=== PATIENT | male | born 1935 | race Caucasian/White ===

== ENCOUNTER 2017-04-18 08:43 | Inpatient (IN) | payer BC, MEDICARE ==
[2017-04-18] MEDS ORDERED: ACETAMINOPHEN TAB 500 MG TAB PO STA (08:50)
[2017-04-18] MEDS ORDERED: IBUPROFEN 600 MG TAB PO STA (08:50)
[2017-04-18] MEDS ORDERED: SODIUM CHLORIDE 0.9% 1,000 ML IV STA ×3 (08:50→09:59)
[2017-04-18] MEDS ORDERED: SODIUM CHLORIDE 0.9% 500 ML IV STA (08:50)
[2017-04-18] MEDS ORDERED: AMPICILLIN-SULBACTAM 3 GM in SODIUM CHLORIDE 0.9% 100 ML IVPB STA (09:09)
[2017-04-18] MEDS ORDERED: DILTIAZEM 5 MG/ML 5 ML VIAL IVP STA (09:09)
[2017-04-18] MEDS ORDERED: VANCOMYCIN IV PER PHARMACY 1 EACH MISC MISCELLANE PRN (09:09)
[2017-04-18] MEDS ORDERED: MORPHINE SULFATE 2 MG/ML SYRINGE IVP ONE (09:09)
[2017-04-18] MEDS ORDERED: VANCOMYCIN 1,500 MG in SODIUM CHLORIDE 0.9% 250 ML IVPB STA (09:16)
[2017-04-18 09:25] LABS: Basophils % (A) 0 %; Eosinophils # (A) 0.1 k/uL (0-0.7); Eosinophils % (A) 1 %; HCT 33.5 % (39.0-53.0); HGB 10.7 gm/dL (13.0-17.5); Lymphocytes # (A) 0.3 k/uL (1.0-4.8); Lymphocytes % (A) 4 %; MCH 30.1 pg (25.0-35.0); MCHC 32.1 g/dL (31.0-37.0); MCV 93.8 fL (80.0-100.0); Mean Platelet Volume 7.4; Monocytes # (A) 0.1 k/uL (0-1.0); Monocytes % (A) 1 %; Neutrophils # (A) 6.8 k/uL (1.3-7.7); Neutrophils % (A) 93 %; Platelet Count 198 k/uL (150-450); RBC 3.57 m/uL (4.30-5.90); RDW 15.1 % (11.5-15.5); WBC 7.3 k/uL (3.8-10.6)
--- NOTE | 2017-04-18 09:31 | ED ---
General Adult HPI - General Chief complaint: Fever Stated complaint: Elevated temp Time Seen by Provider: 04/18/17 08:49 Source: patient, RN notes reviewed, old records reviewed Mode of arrival: EMS Limitations: no limitations - History of Present Illness Initial comments: An 79-year-old male to the ER for evaluation. This patient presents today for evaluation regards to fever. Fever not feeling well. Patient has history of heart disease history of A. fib, patient's most concerning history is recent laminectomy. Patient's laminectomy was within the last week, patient developed fever starting last night shortness of breath weakness. Dehydration. This not feeling well. His back hurts but no more than normal. Patient has no modifying factors for pain, patient did have drainage from surgical site although is clear - Related Data Home Medications Medication Instructions Recorded Confirmed Aspirin 81 mg PO DAILY 08/25/13 12/06/13 Atenolol [Tenormin] 12.5 mg PO BID 08/25/13 12/06/13 Atorvastatin [Lipitor] 40 mg PO HS 08/25/13 12/06/13 B Complex Ultra 1 tab PO DAILY 08/25/13 12/06/13 Calcium,Magnesium 1 tab PO HS 08/25/13 12/06/13 Cholecalciferol [Vitamin D3] 1,000 unit PO DAILY 08/25/13 12/06/13 Fish Oil/Dha/Epa [Fish Oil 1,200 1 each PO HS 08/25/13 12/06/13 mg Fish Oil] Folic Acid 0.4 mg PO BID 08/25/13 12/06/13 Furosemide [Lasix] 20 mg PO DAILY 08/25/13 12/06/13 Lansoprazole 30 mg PO DAILY 08/25/13 12/06/13 Losartan Potassium [Cozaar] 100 mg PO HS 08/25/13 12/06/13 Multivitamins, Thera [Multivitamin 1 tab PO DAILY 08/25/13 12/06/13 (formulary)] Spironolactone [Aldactone] 25 mg PO DAILY 08/25/13 12/06/13 Warfarin [Coumadin] 5 mg PO SUMOTUWETHFR 08/25/13 12/06/13 Warfarin [Coumadin] 7.5 mg PO SA 12/01/13 12/06/13 Allergies Allergy/AdvReac Type Severity Reaction Status Date / Time budesonide [From Symbicort] AdvReac Unknown Verified 04/18/17 12:00 formoterol fumarate AdvReac Unknown Verified 04/18/17 12:00 [From Symbicort] Review of Systems ROS Statement: Those systems with pertinent positive or pertinent negative responses have been documented in the HPI. ROS Other: All systems not noted in ROS Statement are negative. Past Medical History Past Medical History: Coronary Artery Disease (CAD), COPD, GERD/Reflux, GI Bleed , Hyperlipidemia, Hypertension, Myocardial Infarction ([place]), Osteoarthritis (OA) , Prostate Disorder, Skin Disorder, Sleep Apnea/CPAP/BIPAP Additional Past Medical History / Comment(s): SOB W/ INCR ACTIVITY. HX SKIN PRE -CA LESIONS. USES CPAP. HAS HIATAL HERNIA. GI BLEED X3. HX KIDNEY STONE. Last Myocardial Infarction Date:: UNKNOWN History of Any Multi-Drug Resistant Organisms: None Reported Past Surgical History: Back Surgery, Cardiac Ablation, Coronary Bypass/CABG, Heart Catheterization With Stent, Hernia Repair Additional Past Surgical History / Comment(s): BELLA CATARACTS; CTR BELLA; TRIPLE CABG; LT ING HERNIA REPAIR; CARDIOVERSION 12/2012; CARDIAC ABLATION X2, ATTEMPT X1 - LAST DONE 06/27/13 AT [facility] [place] FOR SPINAL STENOSIS Past Anesthesia/Blood Transfusion Reactions: No Reported Reaction Date of Last Stent Placement:: 2003 Past Psychological History: No Psychological Hx Reported Smoking Status: Never smoker - Past Family History Mother Family Medical History: Cancer General Exam - General Exam Comments Initial Comments: Site is clean and dry and intact, no drainage appreciated, no erythema Limitations: no limitations General appearance: alert, in no apparent distress Head exam: Present: atraumatic, normocephalic, normal inspection Eye exam: Present: normal appearance, PERRL, EOMI. Absent: scleral icterus, conjunctival injection, periorbital swelling ENT exam: Present: normal exam, mucous membranes moist Neck exam: Present: normal inspection. Absent: tenderness, meningismus, lymphadenopathy Respiratory exam: Present: normal lung sounds bilaterally. Absent: respiratory distress, wheezes, rales, rhonchi, stridor Cardiovascular Exam: Present: tachycardia, normal heart sounds. Absent: systolic murmur, diastolic murmur, rubs, gallop, clicks GI/Abdominal exam: Present: soft, normal bowel sounds. Absent: distended, tenderness, guarding, rebound, rigid Extremities exam: Present: normal inspection, full ROM, normal capillary refill. Absent: tenderness, pedal edema, joint swelling, calf tenderness Back exam: Present: normal inspection Neurological exam: Present: alert, oriented X3, CN II-XII intact Psychiatric exam: Present: normal affect, normal mood Skin exam: Present: warm, dry, intact, normal color. Absent: rash Course Vital Signs 04/18/17 04/18/17 04/18/17 08:52 09:24 09:56 Temperature 100.2 F H 102.2 F H Pulse Rate 118 H 118 H 119 H Respiratory 20 20 18 Rate Blood Pressure 122/56 95/52 80/51 O2 Sat by Pulse 93 L 99 95 Oximetry 04/18/17 04/18/17 04/18/17 10:29 11:18 11:39 Temperature 101.7 F H Pulse Rate 129 H 128 H 94 Respiratory 16 20 18 Rate Blood Pressure 80/51 74/50 109/62 O2 Sat by Pulse 97 99 98 Oximetry - Reevaluation(s) Reevaluation #1: 04/18/17 12:05 Patient is having significant drop in blood pressure, patient was change rooms, no able and able to control patient's atrial fibrillation with RVR, I was cardiogenic circulatory and vasodilatory shock, patient had central line placed , was placed on BiPAP began to respond appropriately EKG Findings - EKG Comments: EKG Findings:: EKG shows sinus tachycardia rate 116, NC 160, QRS 172, QTC 603. Repeat. EKG shows A. fib with RVR rate 125, QRS 148, QTC 535 Procedures - Central Line Placement Right IJ Consent Obtained: verbal consent Time Out Performed: Yes Patient Placed on Monitor/Pulse Ox: Yes Prep: mask, gown, gloves Central Line Prep: Chlorhexidine scrub Local Anesthesia Used: Lidocaine 1% Ultrasound Used for Placement: Yes Central Line Lumen Inserted: triple Bloods Obtained for Lab: Yes Central Line Position: good blood return, all ports aspirated, flushed, capped Dressing Applied: Tegaderm Post Procedure X-Ray: tip of catheter in good position Patient Tolerated Procedure: well Complications: none Medical Decision Making - Medical Decision Making 81 male the ER for evaluation of fever. Fever, back pain, shakes and chills, patient has severe sepsis, patient to be admitted for continued cardiopulmonary observation and hemodynamic resuscitation and observation. - Lab Data Result diagrams: 04/18/17 09:05 04/18/17 09:05 Lab Results 04/18/17 04/18/17 04/18/17 Range/Units 09:05 09:05 09:05 WBC 7.3 (3.8-10.6) k/uL RBC 3.57 L (4.30-5.90) m/uL Hgb 10.7 L (13.0-17.5) gm/dL Hct 33.5 L (39.0-53.0) % MCV 93.8 (80.0-100.0) fL MCH 30.1 (25.0-35.0) pg MCHC 32.1 (31.0-37.0) g/dL RDW 15.1 (11.5-15.5) % Plt Count 198 (150-450) k/uL Neutrophils % 93 % Lymphocytes % 4 % Monocytes % 1 % Eosinophils % 1 % Basophils % 0 % Neutrophils # 6.8 (1.3-7.7) k/uL Lymphocytes # 0.3 L (1.0-4.8) k/uL Monocytes # 0.1 (0-1.0) k/uL Eosinophils # 0.1 (0-0.7) k/uL Basophils # 0.0 (0-0.2) k/uL PT (9.0-12.0) sec INR (<1.2) APTT (22.0-30.0) sec Sodium (137-145) mmol/L Potassium (3.5-5.1) mmol/L Chloride (98-107) mmol/L Carbon Dioxide (22-30) mmol/L Anion Gap mmol/L BUN (9-20) mg/dL Creatinine (0.66-1.25) mg/dL Est GFR (MDRD) Af Amer (>60 ml/min/1.73 sqM) Est GFR (MDRD) Non-Af (>60 ml/min/1.73 sqM) Glucose (74-99) mg/dL Plasma Lactic Acid Angel (0.7-2.0) mmol/L Calcium (8.4-10.2) mg/dL Phosphorus (2.5-4.5) mg/dL Magnesium (1.6-2.3) mg/dL Total Bilirubin (0.2-1.3) mg/dL AST (17-59) U/L ALT (21-72) U/L Alkaline Phosphatase (38-126) U/L Total Creatine Kinase 43 L (55-170) U/L CK-MB (CK-2) 1.7 (0.0-2.4) ng/mL CK-MB (CK-2) Rel Index 4.0 Troponin I 0.098 H* (0.000-0.034) ng/mL Total Protein (6.3-8.2) g/dL Albumin (3.5-5.0) g/dL Urine Color Urine Appearance (Clear) Urine pH (5.0-8.0) Ur Specific [place] (1.001-1.035) Urine Protein (Negative) Urine Glucose (UA) (Negative) Urine Ketones (Negative) Urine Blood (Negative) Urine Nitrite (Negative) Urine Bilirubin (Negative) Urine Urobilinogen (<2.0) mg/dL Ur Leukocyte Esterase (Negative) Influenza Type A RNA Not Detected (Not Detectd) Influenza Type B (PCR) Not Detected (Not Detectd) 04/18/17 04/18/17 04/18/17 Range/Units 09:05 09:05 09:05 WBC (3.8-10.6) k/uL RBC (4.30-5.90) m/uL Hgb (13.0-17.5) gm/dL Hct (39.0-53.0) % MCV (80.0-100.0) fL MCH (25.0-35.0) pg MCHC (31.0-37.0) g/dL RDW (11.5-15.5) % Plt Count (150-450) k/uL Neutrophils % % Lymphocytes % % Monocytes % % Eosinophils % % Basophils % % Neutrophils # (1.3-7.7) k/uL Lymphocytes # (1.0-4.8) k/uL Monocytes # (0-1.0) k/uL Eosinophils # (0-0.7) k/uL Basophils # (0-0.2) k/uL PT 15.8 H (9.0-12.0) sec INR 1.7 H (<1.2) APTT 23.9 (22.0-30.0) sec Sodium 137 (137-145) mmol/L Potassium 5.0 (3.5-5.1) mmol/L Chloride 101 (98-107) mmol/L Carbon Dioxide 22 (22-30) mmol/L Anion Gap 14 mmol/L BUN 45 H (9-20) mg/dL Creatinine 1.57 H (0.66-1.25) mg/dL Est GFR (MDRD) Af Amer 52 (>60 ml/min/1.73 sqM) Est GFR (MDRD) Non-Af 43 (>60 ml/min/1.73 sqM) Glucose 120 H (74-99) mg/dL Plasma Lactic Acid Angel 3.2 H* (0.7-2.0) mmol/L Calcium 9.5 (8.4-10.2) mg/dL Phosphorus 3.1 (2.5-4.5) mg/dL Magnesium 2.0 (1.6-2.3) mg/dL Total Bilirubin 1.2 (0.2-1.3) mg/dL AST 31 (17-59) U/L ALT 32 (21-72) U/L Alkaline Phosphatase 90 (38-126) U/L Total Creatine Kinase (55-170) U/L CK-MB (CK-2) (0.0-2.4) ng/mL CK-MB (CK-2) Rel Index Troponin I (0.000-0.034) ng/mL Total Protein 6.2 L (6.3-8.2) g/dL Albumin 3.6 (3.5-5.0) g/dL Urine Color Urine Appearance (Clear) Urine pH (5.0-8.0) Ur Specific [place] (1.001-1.035) Urine Protein (Negative) Urine Glucose (UA) (Negative) Urine Ketones (Negative) Urine Blood (Negative) Urine Nitrite (Negative) Urine Bilirubin (Negative) Urine Urobilinogen (<2.0) mg/dL Ur Leukocyte Esterase (Negative) Influenza Type A RNA (Not Detectd) Influenza Type B (PCR) (Not Detectd) 04/18/17 Range/Units 10:23 WBC (3.8-10.6) k/uL RBC (4.30-5.90) m/uL Hgb (13.0-17.5) gm/dL Hct (39.0-53.0) % MCV (80.0-100.0) fL MCH (25.0-35.0) pg MCHC (31.0-37.0) g/dL RDW (11.5-15.5) % Plt Count (150-450) k/uL Neutrophils % % Lymphocytes % % Monocytes % % Eosinophils % % Basophils % % Neutrophils # (1.3-7.7) k/uL Lymphocytes # (1.0-4.8) k/uL Monocytes # (0-1.0) k/uL Eosinophils # (0-0.7) k/uL Basophils # (0-0.2) k/uL PT (9.0-12.0) sec INR (<1.2) APTT (22.0-30.0) sec Sodium (137-145) mmol/L Potassium (3.5-5.1) mmol/L Chloride (98-107) mmol/L Carbon Dioxide (22-30) mmol/L Anion Gap mmol/L BUN (9-20) mg/dL Creatinine (0.66-1.25) mg/dL Est GFR (MDRD) Af Amer (>60 ml/min/1.73 sqM) Est GFR (MDRD) Non-Af (>60 ml/min/1.73 sqM) Glucose (74-99) mg/dL Plasma Lactic Acid Angel (0.7-2.0) mmol/L Calcium (8.4-10.2) mg/dL Phosphorus (2.5-4.5) mg/dL Magnesium (1.6-2.3) mg/dL Total Bilirubin (0.2-1.3) mg/dL AST (17-59) U/L ALT (21-72) U/L Alkaline Phosphatase (38-126) U/L Total Creatine Kinase (55-170) U/L CK-MB (CK-2) (0.0-2.4) ng/mL CK-MB (CK-2) Rel Index Troponin I (0.000-0.034) ng/mL Total Protein (6.3-8.2) g/dL Albumin (3.5-5.0) g/dL Urine Color Yellow Urine Appearance Clear (Clear) Urine pH 5.0 (5.0-8.0) Ur Specific [place] 1.014 (1.001-1.035) Urine Protein Trace H (Negative) Urine Glucose (UA) Negative (Negative) Urine Ketones Negative (Negative) Urine Blood Negative (Negative) Urine Nitrite Negative (Negative) Urine Bilirubin Negative (Negative) Urine Urobilinogen <2.0 (<2.0) mg/dL Ur Leukocyte Esterase Negative (Negative) Influenza Type A RNA (Not Detectd) Influenza Type B (PCR) (Not Detectd) - Radiology Data Radiology results: report reviewed (Chest x-rays negative for pneumonia), image reviewed Critical Care Time Critical Care Time: Yes Total Critical Care Time: 31 Disposition Clinical Impression: Fever, Sepsis, Septic shock, Bacteremia Disposition: ADMITTED IP TO THIS HOSP Condition: Fair Referrals: Chuck Montanez MD [Primary Care Provider] - 1-2 days
[2017-04-18 09:37] LABS: INR 1.7 (<1.2); Partial Thromboplastin Time 23.9 sec (22.0-30.0); Prothrombin Time 15.8 sec (9.0-12.0)
[2017-04-18 09:46] LABS: Albumin 3.6 g/dL (3.5-5.0); Calcium 9.5 mg/dL (8.4-10.2); Phosphorus 3.1 mg/dL (2.5-4.5); Total Bilirubin 1.2 mg/dL (0.2-1.3); Total Protein 6.2 g/dL (6.3-8.2)
[2017-04-18 10:01] LABS: Creatine Kinase MB 1.7 ng/mL (0.0-2.4)
[2017-04-18 10:05] LABS: Troponin I 0.098 ng/mL (0.000-0.034)
--- NOTE | 2017-04-18 10:24 | XR ---
EXAMINATION TYPE: XR chest 2V DATE OF EXAM: 04/18/2017 HISTORY: Weakness. REFERENCE: Previous study dated 01/24/2013. FINDINGS: There has been a midline sternotomy. The lungs are overinflated. The heart is enlarged. There is some blunting of the left CP angle. The l ungs appear clear. IMPRESSION: 1. COPD. 2. CARDIOMEGALY. 3. I CANNOT EXCLUDE A LEFT-SIDED EFFUSION.
[2017-04-18 10:41] LABS: Appearance,Urine Clear (Clear); Bilirubin,Urine Negative (Negative); Blood,Urine Negative (Negative); Color,Urine Yellow; Glucose,Urine (UA) Negative (Negative); Ketones,Urine Negative (Negative); Leukocyte Esterase,Urine Negative (Negative); Nitrite,Urine Negative (Negative); Protein,Urine Trace (Negative); Specific Gravity,Urine 1.014 (1.001-1.035); Urobilinogen,Urine <2.0 mg/dL (<2.0)
[2017-04-18] MEDS ORDERED: NOREPINEPHRIN 4 MG-0.9% NS PMX 4 MG/250 ML ML IV ONE (10:59)
[2017-04-18] MEDS ORDERED: NALOXONE 0.4 MG/ML 10 ML VIAL IVP STA (11:42)
--- NOTE | 2017-04-18 12:56 | XR ---
EXAMINATION TYPE: XR chest 1V portable DATE OF EXAM: 04/18/2017 HISTORY: cp. REFERENCE: Previous study from earlier today. FINDINGS: There has been a midline sternotomy. A right internal jugular catheter is been inserted. Its tip is at the cavoatrial junction. The heart is enlarged. The lungs appear clear. There is mild blunting of the left CP angle. IMPRESSION: 1. I DO NOT SEE A CATHETER INSERTION COMPLICATION. 2. CARDIOMEGALY. 3. I COULD NOT EXCLUDE A SMALL, LEFT EFFUSION.
[2017-04-18] MEDS ORDERED: SODIUM CHLORIDE 0.9% 500 ML IV ONE (13:37)
[2017-04-18 14:28] LABS: Glucose,Whole Blood 88 mg/dL (75-99)
[2017-04-18] MEDS: SODIUM CHLORIDE 0.9% 1,000 ML IV SCH ×2 (14:42→20:00)
[2017-04-18] MEDS: NOREPINEPHRIN 4 MG-0.9% NS PMX 4 MG/250 ML ML IV SCH ×2 (14:46→18:20)
[2017-04-18 15:02] VITALS: BMI 27.4
[2017-04-18] MEDS ORDERED: NALOXONE 0.4 MG/ML 1 ML VIAL IV PRN (15:33)
--- NOTE | 2017-04-18 15:36 | P.CNPUL ---
History of Present Illness Consult date: 04/18/17 Chief complaint: Chills and rigors, hypotension History of present illness: Consult dated 04/18/2017 81-year-old male who comes in today because of chills and right dorsalis at home. About 7 or 8 days ago, he had a laminectomy done in [place] by Dr. Tony De Jesus. The laminectomy was done at levels L3 4 and 5. Anyway apparently this morning he developed acute right nurse and chills. He couldn't get warm. Likely had fever. The patient does have purulent drainage from the incision site. The patient Don is currently on fluids and norepinephrine for blood pressure support. The patient has an extensive past medical history including coronary artery disease COPD gastroesophageal reflux disease GI bleed hyperlipidemia hypertension myocardial infarction DJD sleep apnea syndrome skin cancer cardiac ablation recent back surgery cardiac catheterization hernia repair bypass grafting and atrial fibrillation. Currently the patient is on norepinephrine for blood pressure support. Did receive 3 L of fluid. Is on good antibiotics in the form of vancomycin and Zosyn. A CAT scan will be ordered to evaluate the lumbar spine. The drainage is purulent. Infectious disease consult has been requested. Review of Systems A 12 point review of systems is positive for chills and write orders. Those have settled down quite a bit. Has pain in the bck where the surgery was done. No fever at the current time. Past Medical History Past Medical History: Coronary Artery Disease (CAD), COPD, GERD/Reflux, GI Bleed , Hyperlipidemia, Hypertension, Myocardial Infarction ([place]), Osteoarthritis (OA) , Prostate Disorder, Skin Disorder, Sleep Apnea/CPAP/BIPAP Additional Past Medical History / Comment(s): SOB W/ INCR ACTIVITY. HX SKIN PRE -CA LESIONS. USES CPAP. HAS HIATAL HERNIA. GI BLEED X3. HX KIDNEY STONE. Last Myocardial Infarction Date:: UNKNOWN History of Any Multi-Drug Resistant Organisms: None Reported Past Surgical History: Back Surgery, Cardiac Ablation, Coronary Bypass/CABG, Heart Catheterization With Stent, Hernia Repair Additional Past Surgical History / Comment(s): BELLA CATARACTS; CTR BELLA; TRIPLE CABG; LT ING HERNIA REPAIR; CARDIOVERSION 12/2012; CARDIAC ABLATION X2, ATTEMPT X1 - LAST DONE 06/27/13 AT [facility] [place] FOR SPINAL STENOSIS Past Anesthesia/Blood Transfusion Reactions: No Reported Reaction Date of Last Stent Placement:: 2003 Smoking Status: Never smoker - Past Family History Mother Family Medical History: Cancer Medications and Allergies Home Medications Medication Instructions Recorded Confirmed Type Aspirin 81 mg PO HS 08/25/13 04/18/17 History Atorvastatin [Lipitor] 40 mg PO HS 08/25/13 04/18/17 History B Complex Ultra 1 tab PO DAILY 08/25/13 04/18/17 History Calcium,Magnesium 1 tab PO HS 08/25/13 04/18/17 History Cholecalciferol [Vitamin D3] 1,000 unit PO DAILY 08/25/13 04/18/17 History Fish Oil/Dha/Epa [Fish Oil 1,200 1 cap PO HS 08/25/13 04/18/17 History mg Fish Oil] Folic Acid 0.4 mg PO BID 08/25/13 04/18/17 History Furosemide [Lasix] 40 mg PO DAILY 08/25/13 04/18/17 History Lansoprazole 30 mg PO DAILY 08/25/13 04/18/17 History Multivitamins, Thera [Multivitamin 1 tab PO DAILY 08/25/13 04/18/17 History (formulary)] Spironolactone [Aldactone] 25 mg PO DAILY 08/25/13 04/18/17 History Warfarin [Coumadin] 5 mg PO HS 08/25/13 04/18/17 History Glucosam/Del-Msm1/C/Drew/Bosw 1 tab PO DAILY 04/18/17 04/18/17 History [Glucosamine-Chondroitin Tablet] Losartan Potassium 50 mg PO DAILY@1200 04/18/17 04/18/17 History Metoprolol Succinate (ER) [Toprol 50 mg PO DAILY 04/18/17 04/18/17 History Xl] Allergies Allergy/AdvReac Type Severity Reaction Status Date / Time budesonide [From Symbicort] AdvReac Unknown Verified 04/18/17 12:00 formoterol fumarate AdvReac Unknown Verified 04/18/17 12:00 [From Symbicort] Physical Exam Osteopathic Statement: *. No significant issues noted on an osteopathic structural exam other than those noted in the History and Physical/Consult. Vitals: Vital Signs Temp Pulse Resp BP Pulse Ox 04/18/17 13:49 98 04/18/17 12:24 98.9 F 104 H 16 100/53 98 04/18/17 11:39 94 18 109/62 98 04/18/17 11:18 128 H 20 74/50 99 04/18/17 10:29 101.7 F H 129 H 16 80/51 97 04/18/17 09:56 102.2 F H 119 H 18 80/51 95 04/18/17 09:24 118 H 20 95/52 99 04/18/17 08:52 100.2 F H 118 H 20 122/56 93 L Intake and Output 04/18/17 04/18/17 04/18/17 06:59 14:59 22:59 Other: Weight 91.9 kg Patient Weight 04/19/17 06:59 Weight 91.9 kg No acute distress, oriented 3. HEENT examination is grossly unremarkable. Mucous membranes are moist. No oral lesions. Neck supple. Full range of motion. No adenopathy thyromegaly or neck vein distention. Cardiovascular examination reveals regular rhythm rate. S1-S2 normal. No S3 or S4. No discernible murmur noted. Lungs reveal clear breath sounds. Her sounds are equal bilaterally. No adventitious lung sounds including wheezes rhonchi or crackles. Abdomen soft bowel sounds are heard. No masses or tenderness. Extremities are intact. No cyanosis clubbing or edema. Skin is without rash. There is quite a bit bruising on the back with lumbar laminectomy was performed. The drainage from the site is very purulent appearing. Neurologic examination is brief but nonfocal. Results - Laboratory Findings CBC and BMP: 04/18/17 09:05 04/18/17 09:05 PT/INR, D-dimer PT 15.8 sec (9.0-12.0) H 04/18/17 09:05 INR 1.7 (<1.2) H 04/18/17 09:05 Abnormal lab findings: Abnormal Labs 04/18/17 04/18/17 04/18/17 09:05 09:05 09:05 RBC 3.57 L Hgb 10.7 L Hct 33.5 L Lymphocytes # 0.3 L PT INR BUN 45 H Creatinine 1.57 H Glucose 120 H Plasma Lactic Acid Angel Total Creatine Kinase 43 L Troponin I 0.098 H* Total Protein 6.2 L Urine Protein 04/18/17 04/18/17 04/18/17 09:05 09:05 10:23 RBC Hgb Hct Lymphocytes # PT 15.8 H INR 1.7 H BUN Creatinine Glucose Plasma Lactic Acid Angel 3.2 H* Total Creatine Kinase Troponin I Total Protein Urine Protein Trace H - Diagnostic Findings Chest x-ray: image reviewed (Labs x-rays a medications are all reviewed.) Assessment and Plan Assessment: Assessment Sepsis with septic shock Recent lumbar laminectomy History of CAD Myocardial infarction Hypertension Hyperlipidemia History of sleep apnea syndrome, currently on CPAP History of kidney stones Status post bypass grafting Status post multiple cardiac ablations Previous cardiac catheterization with stent placement Plan: Plan dated 04/18/2017 The patient will continue on antibiotics. We'll request an infectious disease consult. There has been a Gram stain and culture sent from the drainage from the back. The patient Don is on good antibiotics currently. We'll await ID input there. The patient's currently receiving an adequate fluid resuscitation and norepinephrine for blood pressure support. A CAT scan will be ordered to evaluate the area. The patient may benefit from being transferred back to [place] depending on what is found in the back. Additional recommendations and suggestions are forthcoming. Time with Patient: Greater than 30
[2017-04-18] MEDS: PIPERACILLIN-TAZOBACTAM 3.375 GM in DEXTROSE/WATER 1 50ML.BAG IVPB SCH ×2 (16:06→23:15)
--- NOTE | 2017-04-18 17:47 | CT ---
EXAMINATION TYPE: CT lumbar spine wo con DATE OF EXAM: 04/18/2017 COMPARISON: NONE HISTORY: 81-year-old male with pain, purulent drainage from lumbar wound, Post OP lumbar surgery with infection TECHNIQUE: Contiguous axial scanning of the lumbar spine without IV contrast. Coronal and sagittal re constructions performed. CT DLP: 1029.2 mGycm Automated exposure control for dose reduction was used. FINDINGS: There are small effusions and a small hiatal hernia. Degenerative changes at both SI joints. Mild dif fuse anasarca type changes. 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 There is postsurgical inflammation and soft tissue distortion along the mid lumbar spine is seen to r epresent a left L4 and probably a right-sided laminectomy at this level as well. Low density is present within the left sided laminectomy defect measuring 2.3 x 1.8 cm. Some foci of air present here extending to the left lateral epidural space opposite L4 and also in the ventral foc i of air space opposite L3. There may be another small fluid collection in the posterior subcutaneous fat left paramedian L3-L4 l evel measuring 1.7 x 1.4 cm. Lack of IV contrast limits assessment. Severe facet arthropathy. Degenerative retrolistheses are grade 1 at L1-L2, L2-L3, and L4-L5. No fransico canal compromise is evident though bulging discs are present throughout. On the left, changes result in moderate neural foraminal stenosis at L5-S1 and moderate at L2 through L5 levels. On the right, changes result in moderate neural foraminal stenosis from L2 through L5 levels and mild at L5-S1. Vertebral body heights are preserved. No endplate erosive changes are seen. IMPRESSION: 1. LEFT L4 LAMINECTOMY CHANGE. THERE IS 2.3 X 1.8 CM LOW-DENSITY IN THE LAMINECTOMY BED. GIVEN THE PA TIENT'S PURULENT DRAINAGE, POSTSURGICAL ABSCESS AT THE LAMINECTOMY BED IS NOT EXCLUDED. OTHER POSTOPE RATIVE COLLECTION SUCH A SEROMA IS ALSO POSSIBLE. 2. SMALL FOCI OF AIR IN THE EPIDURAL SPACE JUST UNDERLYING AND EXTENDING ALONG THE LEFT LATERAL EPIDU RAL SPACE OPPOSITE L4 AND VENTRAL EPIDURAL SPACE OPPOSITE L3-L4. IF THERE IS INFECTION AT THE LAMINEC AGUILA BED, EARLY EPIDURAL INVOLVEMENT WOULD BE DIFFICULT TO EXCLUDE. CORRELATE TO TIME SINCE SURGER Y TO DETERMINE IF THIS EPIDURAL SPACE AIR MAY BE POSTSURGICAL. 3. SMALL EFFUSIONS AND DIFFUSE ANASARCA-TYPE CHANGE.
--- NOTE | 2017-04-18 19:13 | HP ---
HISTORY AND PHYSICAL CHIEF COMPLAINT: Fever. HISTORY OF PRESENT ILLNESS: This is an 81-year-old gentleman was admitted to the hospital after being brought to the emergency room because of severe chills. The patient got up to the bathroom when he suddenly started having severe chills and feeling hot. The patient had recently about 10 days ago a surgery of his lumbosacral spine for laminectomy. The patient has been having drainage for the past couple of days. Initially, the drainage was brownish in color. Subsequent to that is significant clear serosanguineous drainage. In view of this, the patient was seen in the emergency room. The patient is noted to have suggestion of sepsis with some elevated lactic acid, episodes of hypotension improved with IV fluids, tachycardia, fever. The patient in view of this, is admitted to the hospital. I did see the patient in the emergency room and I called the surgeon who operated on him. The patient had surgery at [place]. The surgeon recommended that the patient just being about a week to 10 days out, did not seem to need any surgical intervention, and at present would be best off treated up here. The patient will be admitted to the hospital here. If it does arise the patient will require any surgical intervention of the lumbosacral spine, he will have to be transferred out. Meanwhile we will stabilize the patient. The patient has been given IV fluids. He has been started on vancomycin. In the ER, he had been given Augmentin. The patient will be has been switched to Zosyn. We will ask ID to see the patient and mechanical specialist to see the patient. The patient's condition is discussed with the patient's family. The patient has no evidence of any influenza or any other respiratory infection or urinary infection. He is pretty alert and able to communicate well. He does not feel his pain the lumbar area worsened any in the last couple days. PAST MEDICAL HISTORY: Significant for infiltrative cardiomyopathy with amyloidosis. Also history of chronic atrial fibrillation. Coronary artery disease. Previous history of atrial fib flutter, peptic ulcer disease with bleeding, gastroesophageal reflux and esophageal stricture requiring dilatation couple of times, spinal stenosis with previous lumbar surgery and recent repeat lumbar surgery. History of BPH. PAST SURGICAL HISTORY: Significant for right inguinal herniorrhaphy, CABG 26 years ago, cataracts, EGD with esophageal dilatation and lumbar surgery twice. PERSONAL HISTORY: Never smoker. Alcohol, wine about 1 glass per day twice a week. FAMILY MEDICAL HISTORY: Father at the age of 62 of acute myocardial infarction. Mother at the age of 57 from CA of breast. The patient had a brother with history of coronary artery disease. Two sisters both with history of coronary artery disease, arthrosclerotic heart disease. The patient has a daughter in adequate health, two sons both with atrial fibrillation. MEDICATIONS: Include Lasix 20 mg daily. Aldactone 25 mg daily. Losartan 100 mg daily, iron tablet daily. Vitamin D daily. Folic acid daily, Coumadin 5 mg daily, Prevacid 30 mg daily. Atenolol 25 mg half tablet b.i.d., atorvastatin 40 mg daily. Aspirin 81 mg daily. SOCIAL HISTORY: Patient . The patient still works. He works with an [employer]. REVIEW OF SYSTEMS: NEURO: Denies any headaches, dizziness. No double vision, blurred vision. No symptoms of TIA, syncope, seizures. PSYCH: Some apprehension. CARDIAC: Denies chest pain, angina, palpitations. RESPIRATORY: Denies shortness of breath, cough, hemoptysis. GI: No nausea, vomiting, abdominal pain, diarrhea. : No symptoms of dysuria, hematuria, urgency, frequency. Does have some nocturia. EXTREMITIES: Denies pain, edema, paresthesias. CONSTITUTIONAL: Present complaint of fever, chills. SKIN: No rash. MUSCULOSKELETAL: Status post present lower back surgery. PHYSICAL EXAMINATION: Pleasant gentleman, awake, alert, oriented, well-coordinated movements. Blood pressure at the time of my evaluation in the emergency room was 96/60 blood pressure, pulse rate of 110 and regular, afebrile after receiving some Tylenol earlier. Respirations 18. Pulse ox of 97%. HEENT: Normocephalic. Neck supple. Pupils reactive. Nostrils clear. Oral cavity is moist. Ears reveal no drainage. Neck reveals no JVD, carotid bruits or thyromegaly. CHEST: Examination is clear to auscultation and percussion. CARDIAC: Normal S1, S2 with no gallops, murmurs, or rubs. Systolic murmur 2/6 at apex. ABDOMEN: Soft. Bowel sounds present. No tenderness. No organomegaly. Bowel sounds active. EXTREMITIES: Reveal no edema. Good pulses both upper and lower extremities. NEUROLOGICAL: Awake, alert, oriented x3 with well-coordinated movements both upper and lower extremities. Patient is examined lying in bed, not out of bed. The patient's sensations in both feet are intact. Deep tendon reflexes both lower extremities are reduced. Spine reveals the patient has a small incision about the L4-5 area with some drainage which is serosanguineous. LABORATORY ASSESSMENT: Elevated lactic acid as mentioned. X-ray reveals no acute infiltrates. ASSESSMENT: 1. Sepsis, source suspect the recent site of lumbosacral surgery. 2. History of cardiomyopathy with amyloidosis. 3. Paroxysmal atrial fibrillation. 4. Coronary artery disease, stable. PLAN: The patient admitted to the hospital, started on IV antibiotics, IV fluids. The patient is being admitted to the ICU. Instructional Assistant to see the patient, ID to see the patient. The patient is to get a CT scan of the lumbosacral spine. I have discussed with the patient and family that if there is any indication that he is going to need any surgical intervention in the lumbar cervical spine, he may have to be transferred out of this institution. Prognosis remains guarded. MMODL / IJN: [id number] /
[2017-04-18] MEDS ORDERED: ASPIRIN 81 MG PO SCH (21:00)
[2017-04-18] MEDS ORDERED: ATORVASTATIN 40 MG TAB PO SCH (21:00)
[2017-04-18] MEDS ORDERED: WARFARIN 5 MG TAB PO SCH (21:00)
[2017-04-18] MEDS: ACETAMINOPHEN TAB 325 MG TAB PO PRN (22:50)
--- NOTE | 2017-04-19 01:43 | P.CONS ---
History of Present Illness - Reason for Consult Consult date: 04/18/17 Sepsis Requesting physician: Chuck Montanez - Chief Complaint Rigors and chills x 1 day - History of Present Illness Patient is 81-year-old male who recently did have lumbar laminectomy done at the [facility] about 10 days ago, patient apparently did have slight drainage from his lumbar spine incision which was initially brownish in color subsequently becoming clear over the last day has becoming more purulent per the who has been changing his dressing, patient was brought into the [facility] ER this morning after the patient started having significant rigors and chills and unable to get himself warm the patient has been feeling very weak and tired and he did have some low back pain more of a dull aching about 5-10 and no radiation, that did improve with pain medication with these symptom the patient was evaluated by the ER physician, patient was noticed to be febrile with a fever of 102 degree Fahrenheit he was hypotensive with a blood pressure of 80/51 along with some tachycardia and elevated lactic acid. Patient did have a UA that was negative influenza serology was negative, patient did have a chest x-ray with some COPD cardiomegaly and left-sided effusion patient has been admitted to the ICU because of severe sepsis at the time of evaluation the patient on 5 mics of Levophed ID was consulted for further recommendation regarding antibiotic therapy. Review of Systems CONSTITUTIONAL: Positive for weakness along with the fever .EYES: No complaint. ENT: No complaint. RESPIRATORY: No complaint. CARDIOVASCULAR: No complaint. GENITOURINARY: No complaint. GASTROINTESTINAL: No complaint. MUSCULOSKELETAL: as per HPI. INTEGUMENTARY: as per HPI PSYCHOLOGIC: No complaint. ENDOCRINE: No complaint NEUROLOGIC: No complaint. Past Medical History Past Medical History: Coronary Artery Disease (CAD), COPD, GERD/Reflux, GI Bleed , Hyperlipidemia, Hypertension, Myocardial Infarction (DC), Osteoarthritis (OA) , Prostate Disorder, Skin Disorder, Sleep Apnea/CPAP/BIPAP Additional Past Medical History / Comment(s): SOB W/ INCR ACTIVITY. HX SKIN PRE -CA LESIONS. USES CPAP. HAS HIATAL HERNIA. GI BLEED X3. HX KIDNEY STONE. Last Myocardial Infarction Date:: UNKNOWN History of Any Multi-Drug Resistant Organisms: None Reported Past Surgical History: Back Surgery, Cardiac Ablation, Coronary Bypass/CABG, Heart Catheterization With Stent, Hernia Repair Additional Past Surgical History / Comment(s): BELLA CATARACTS; CTR BELLA; TRIPLE CABG; LT ING HERNIA REPAIR; CARDIOVERSION 12/2012; CARDIAC ABLATION X2, ATTEMPT X1 - LAST DONE 06/27/13 AT [facility] FOR SPINAL STENOSIS Past Anesthesia/Blood Transfusion Reactions: No Reported Reaction Date of Last Stent Placement:: 2003 Smoking Status: Never smoker - Past Family History Mother Family Medical History: Cancer Medications and Allergies Home Medications Medication Instructions Recorded Confirmed Type Aspirin 81 mg PO HS 08/25/13 04/18/17 History Atorvastatin [Lipitor] 40 mg PO HS 08/25/13 04/18/17 History B Complex Ultra 1 tab PO DAILY 08/25/13 04/18/17 History Calcium,Magnesium 1 tab PO HS 08/25/13 04/18/17 History Cholecalciferol [Vitamin D3] 1,000 unit PO DAILY 08/25/13 04/18/17 History Fish Oil/Dha/Epa [Fish Oil 1,200 1 cap PO HS 08/25/13 04/18/17 History mg Fish Oil] Folic Acid 0.4 mg PO BID 08/25/13 04/18/17 History Furosemide [Lasix] 40 mg PO DAILY 08/25/13 04/18/17 History Lansoprazole 30 mg PO DAILY 08/25/13 04/18/17 History Multivitamins, Thera [Multivitamin 1 tab PO DAILY 08/25/13 04/18/17 History (formulary)] Spironolactone [Aldactone] 25 mg PO DAILY 08/25/13 04/18/17 History Warfarin [Coumadin] 5 mg PO HS 08/25/13 04/18/17 History Glucosam/Del-Msm1/C/Drew/Bosw 1 tab PO DAILY 04/18/17 04/18/17 History [Glucosamine-Chondroitin Tablet] Losartan Potassium 50 mg PO DAILY@1200 04/18/17 04/18/17 History Metoprolol Succinate (ER) [Toprol 50 mg PO DAILY 04/18/17 04/18/17 History Xl] Allergies Allergy/AdvReac Type Severity Reaction Status Date / Time No Known Allergies Allergy Verified 04/18/17 15:32 Physical Exam Vitals: Vital Signs Temp Pulse Resp BP Pulse Ox 01/20/18 13:49 98 04/18/17 12:24 98.9 F 104 H 16 100/53 98 04/18/17 11:39 94 18 109/62 98 04/18/17 11:18 128 H 20 74/50 99 04/18/17 10:29 101.7 F H 129 H 16 80/51 97 04/18/17 09:56 102.2 F H 119 H 18 80/51 95 04/18/17 09:24 118 H 20 95/52 99 04/18/17 08:52 100.2 F H 118 H 20 122/56 93 L Intake and Output 04/18/17 04/18/17 04/18/17 06:59 14:59 22:59 Intake Total 150 Output Total 110 Balance 40 Intake: IV 150 Sodium Chloride 0.9% 1, 150 000 ml @ 150 mls/hr IV . Q6H40M [facility] Rx#:[id number] Output: Urine 110 Other: Weight 91.9 kg Patient Weight 04/19/17 06:59 Weight 91.9 kg GENERAL DESCRIPTION: Elderly male lying in bed, no distress. No tachypnea or accessory muscle of respiration use. HEENT: Shows Pallor , no scleral icterus. Oral mucous membrane is dry.No pharyngeal erythema or thrush NECK: Trachea central, no thyromegaly. LUNGS: Unlabored breathing. Decreased breath sounds at base , no wheeze HEART: S1, S2, regular rate and rhythm. ABDOMEN: Soft, no tenderness , guarding or rigidity EXTREMITIES: No edema of feet .SKIN: No rash, no masses palpable. MUSCULOSKELETAL SYSTEM: Significant bruise along the lumbar spine area with a small open area and minimal cloudy drainage , no foul smell NEUROLOGICAL : Awake , alert , oriented x3 , Mood and affect normal , no focal weakness Results CBC & Chem 7: 04/18/17 09:05 04/18/17 09:05 Labs: Abnormal Lab Results - Last 24 Hours (Table) 04/18/17 04/18/17 04/18/17 Range/Units 09:05 09:05 09:05 RBC 3.57 L (4.30-5.90) m/uL Hgb 10.7 L (13.0-17.5) gm/dL Hct 33.5 L (39.0-53.0) % Lymphocytes # 0.3 L (1.0-4.8) k/uL PT (9.0-12.0) sec INR (<1.2) BUN 45 H (9-20) mg/dL Creatinine 1.57 H (0.66-1.25) mg/dL Glucose 120 H (74-99) mg/dL Plasma Lactic Acid Angel (0.7-2.0) mmol/L Total Creatine Kinase 43 L (55-170) U/L Troponin I 0.098 H* (0.000-0.034) ng/mL Total Protein 6.2 L (6.3-8.2) g/dL Urine Protein (Negative) 04/18/17 04/18/17 04/18/17 Range/Units 09:05 09:05 10:23 RBC (4.30-5.90) m/uL Hgb (13.0-17.5) gm/dL Hct (39.0-53.0) % Lymphocytes # (1.0-4.8) k/uL PT 15.8 H (9.0-12.0) sec INR 1.7 H (<1.2) BUN (9-20) mg/dL Creatinine (0.66-1.25) mg/dL Glucose (74-99) mg/dL Plasma Lactic Acid Angel 3.2 H* (0.7-2.0) mmol/L Total Creatine Kinase (55-170) U/L Troponin I (0.000-0.034) ng/mL Total Protein (6.3-8.2) g/dL Urine Protein Trace H (Negative) Microbiology - Last 24 Hours (Table) 04/18/17 12:34 Wound Culture - Preliminary Back 04/18/17 10:23 Urine Culture - Preliminary Urine,Voided Chest x-ray: report reviewed (Cardiomegaly , COPD , Effusion) Assessment and Plan (1) Sepsis Current Visit: Yes Status: Acute Code(s): A41.9 - SEPSIS, UNSPECIFIED ORGANISM SNOMED Code(s): 81794915 Plan: 1-patient with sepsis in a patient who presented hospital with Rigors and chills, did have a fever of 10 2F, hypotension tachycardia meeting criteria for SIRS source is likely lumbar surgical site infection as the patient has slight purulent drainage the likely organism that need to be covered will be the gram-positive skin mary however the gram-negative infection not entirely excluded. Other workup for sepsis including a chest x-ray negative for pneumonia UA has been negative and influenza serology was negative 2-vancomycin pharmacy to dose target trough of 15 along with Zosyn 3.375 g every 8 hours 3-blood cultures 2 4-CT of the lumbosacral spine to make sure no evidence of any deep collection that may need to be drained 5-we will follow on clinical condition and cultures to further adjust his medication if needed. thank you for this consultation we will follow this patient along with you Time with Patient: Greater than 30
[2017-04-19] MEDS: NOREPINEPHRIN 4 MG-0.9% NS PMX 4 MG/250 ML ML IV SCH (02:56)
[2017-04-19] MEDS: SODIUM CHLORIDE 0.9% 1,000 ML IV SCH ×2 (02:57→08:17)
[2017-04-19 04:38] LABS: Basophils % (A) 0 %; Eosinophils # (A) 0.1 k/uL (0-0.7); Eosinophils % (A) 1 %; HGB 9.8 gm/dL (13.0-17.5); Lymphocytes # (A) 0.4 k/uL (1.0-4.8); Lymphocytes % (A) 6 %; MCHC 31.7 g/dL (31.0-37.0); MCV 94.5 fL (80.0-100.0); Mean Platelet Volume 6.9; Monocytes # (A) 0.3 k/uL (0-1.0); Monocytes % (A) 4 %; Neutrophils # (A) 5.8 k/uL (1.3-7.7); Neutrophils % (A) 86 %; Platelet Count 166 k/uL (150-450); RBC 3.28 m/uL (4.30-5.90); WBC 6.7 k/uL (3.8-10.6)
[2017-04-19 04:52] LABS: Anion Gap 13 mmol/L; Blood Urea Nitrogen 36 mg/dL (9-20); Calcium 7.6 mg/dL (8.4-10.2); Carbon Dioxide 18 mmol/L (22-30); Chloride 106 mmol/L (98-107); Glucose 117 mg/dL (74-99); Magnesium 2.1 mg/dL (1.6-2.3); Phosphorus 2.8 mg/dL (2.5-4.5); Potassium 4.4 mmol/L (3.5-5.1); Sodium 137 mmol/L (137-145)
[2017-04-19 05:13] LABS: INR 2.2 (<1.2); Partial Thromboplastin Time 31.9 sec (22.0-30.0); Prothrombin Time 19.9 sec (9.0-12.0)
--- NOTE | 2017-04-19 07:05 | XR ---
EXAMINATION TYPE: XR chest 1V DATE OF EXAM: 04/19/2017 HISTORY: VASYL. REFERENCE: Previous study dated 04/18/2017. FINDINGS: The patient right internal jugular catheter remains in place, unchanged in appearance. Ther e has been a previous midline sternotomy. There is multichamber cardiac enlargement. Lung volumes are prominent. There is atelectatic change pr esent at the left lung base. I suspect a small left effusion. IMPRESSION: 1. CARDIOMEGALY. 2. LEFT BASILAR ATELECTASIS. 3. SMALL LEFT-SIDED EFFUSION.
[2017-04-19] MEDS: ACETAMINOPHEN TAB 325 MG TAB PO PRN ×2 (08:16→13:28)
[2017-04-19] MEDS: PIPERACILLIN-TAZOBACTAM 3.375 GM in DEXTROSE/WATER 1 50ML.BAG IVPB SCH (08:51)
[2017-04-19] MEDS ORDERED: PANTOPRAZOLE 40 MG/10 ML VIAL IV SCH (09:00)
[2017-04-19] MEDS ORDERED: METOPROLOL SUCCINATE (ER) 50 MG TAB.ER.24H PO SCH (09:00)
[2017-04-19] MEDS ORDERED: VANCOMYCIN 1,500 MG in SODIUM CHLORIDE 0.9% 250 ML IVPB SCH (09:00)
[2017-04-19 09:43] VITALS: TEMP 98.1
[2017-04-19] MEDS ORDERED: DILTIAZEM 125 MG in SODIUM CHLORIDE 0.9% 100 ML IV SCH (11:00)
--- NOTE | 2017-04-19 11:19 | P.DS ---
Providers Date of admission: 04/18/17 12:00 Expected date of discharge: 04/19/17 Attending physician: Chuck Montanez Consults: 04/18/17 13:26 Consult Physician Routine Consulting Provider: Jorge Rodriguez Consult Reason/Comments: Sepsis Do you want consulting provider notified?: Yes Consult Physician Stat Consulting Provider: Patricio Freeman Consult Reason/Comments: ICU management Do you want consulting provider notified?: Already Contacted Primary care physician: Chuck Montanez Hospital Course: This 81-year-old gentleman was admitted to the hospital after presenting to the emergency room with severe chills and rigors. Patient noted to have a fever. Also noted to have a drainage from his recent surgical incision in the lumbosacral area. The patient required oxygenation IV fluids were given to evidence of sepsis with lactic acid elevated. Patient also placed on vancomycin and Zosyn. The patient admitted to the ICU. Patient's been followed by the coordinator of genetic services. He is exhibiting intermittent atrial fibrillation rapid rate. He has a history of atrial fibrillation for which she has had ablations. He has a history of coronary artery disease about 25 years ago had an MT. The patient does have a cardiomyopathy secondary to amyloidosis. Patient drainage from the surgical site was significant at home but has been limited here. A CAT scan done reveals a small pocket, abscess not ruled out. We have been in contact with Dr. Tony De Jesus out of [place]. He is the surgeon who operated the patient. The patient had a lumbar laminectomy. Dr. De Jesus was available for consultation and is accepting the patient at his facility. The patient is on vancomycin and Zosyn here. His IV fluids requires Levophed to maintain his blood pressure at times and has been placed on Cardizem to help control his heart rate. Patient is alert adequately oxygenated. Urine outputs adequate labs are attached. She does have mild anemia white counts normal. Renal function mildly decreased. Suspect some degree of ATN. The patient will be transferred to ambulance. Patient conditions been discussed with the patient, spouse and son. Dr. Freeman was very helpful in management of the patient in the ICU. Patient at present is on Cardizem drip at 10 mg per hour, Levophed at 4 mics. IV fluid normal saline at 150 mL/h. Vancomycin and Zosyn. Coumadin will be held for now in case surgical intervention. Lovenox 40 mg subcu daily be initiated. All other oral medications have been on hold at present. Patient Condition at Discharge: Fair Plan - Discharge Summary Discharge Rx Participant: Yes New Discharge Prescriptions: No Action Spironolactone [Aldactone] 25 mg PO DAILY Furosemide [Lasix] 40 mg PO DAILY Cholecalciferol [Vitamin D3] 1,000 unit PO DAILY Lansoprazole 30 mg PO DAILY Warfarin [Coumadin] 5 mg PO HS Folic Acid 0.4 mg PO BID Atorvastatin [Lipitor] 40 mg PO HS Aspirin 81 mg PO HS Multivitamins, Thera [Multivitamin (formulary)] 1 tab PO DAILY Fish Oil/Dha/Epa [Fish Oil 1,200 mg Fish Oil] 1 cap PO HS Calcium,Magnesium 1 tab PO HS B Complex Ultra 1 tab PO DAILY Metoprolol Succinate (ER) [Toprol Xl] 50 mg PO DAILY Losartan Potassium 50 mg PO DAILY@1200 Glucosam/Del-Msm1/C/Drew/Bosw [Glucosamine-Chondroitin Tablet] 1 tab PO DAILY Discharge Medication List Aspirin 81 mg PO HS 08/25/13 [History] Atorvastatin [Lipitor] 40 mg PO HS 08/25/13 [History] B Complex Ultra 1 tab PO DAILY 08/25/13 [History] Calcium,Magnesium 1 tab PO HS 08/25/13 [History] Cholecalciferol [Vitamin D3] 1,000 unit PO DAILY 08/25/13 [History] Fish Oil/Dha/Epa [Fish Oil 1,200 mg Fish Oil] 1 cap PO HS 08/25/13 [History] Folic Acid 0.4 mg PO BID 08/25/13 [History] Furosemide [Lasix] 40 mg PO DAILY 08/25/13 [History] Lansoprazole 30 mg PO DAILY 08/25/13 [History] Multivitamins, Thera [Multivitamin (formulary)] 1 tab PO DAILY 08/25/13 [History ] Spironolactone [Aldactone] 25 mg PO DAILY 08/25/13 [History] Warfarin [Coumadin] 5 mg PO HS 08/25/13 [History] Glucosam/Del-Msm1/C/Drew/Bosw [Glucosamine-Chondroitin Tablet] 1 tab PO DAILY 04/18/17 [History] Losartan Potassium 50 mg PO DAILY@1200 04/18/17 [History] Metoprolol Succinate (ER) [Toprol Xl] 50 mg PO DAILY 04/18/17 [History] Follow up Appointment(s)/Referral(s): Chuck Montanez MD [Primary Care Provider] - 1-2 days
--- NOTE | 2017-04-19 11:50 | P.PN ---
Subjective Progress Note Date: 04/19/17 Principal diagnosis: Abscess Progress note dated 04/19/2017 This is a very pleasant 81-year-old male who recently had a laminectomy at L3 L4 L[address] Dr. De Jesus and [place], [place]. Unfortunately, the patient developed fever chills and Reiger's. He clearly has a active infection at the surgical site. In addition, he developed septic shock requiring fluid resuscitation and norepinephrine as well as atrial fibrillation with rapid ventricular response. The patient does have a history of CAD, COPD, GERD, GI bleed, hyperlipidemia, hypertension, myocardial infarction, DJD, sleep apnea syndrome, skin cancer, cardiac ablation, cardiac catheterization, hernia repair , bicarb past grafting and chronic atrial fibrillation. Currently the patient remains on norepinephrine at about 4 mcg/m and is also on a Cardizem drip at 10 mg an hour. The surgeon has finally agreed to accept the patient to the [facility]. We'll do a ground ambulance transfer there. All the appropriate physicians and transfer people have been notified. I think this is the best thing for the patient given the fact that the computed tomography scan of the back did show an abscess in that area. Objective - Vital Signs Vital signs: Vital Signs Temp 98.1 F 04/19/17 08:00 Pulse 133 H 04/19/17 09:00 Resp 22 04/19/17 09:00 BP 95/64 04/19/17 09:00 Pulse Ox 94 L 04/19/17 10:12 Intake & Output 04/18/17 04/19/17 04/19/17 18:59 06:59 18:59 Intake Total 688.622 8414.0 450 Output Total 110 1085 200 Balance 985.593 7236.0 250 Weight 91.9 kg 95 kg Intake: IV 450 1850.0 450 Piperacillin-Tazobactam 3 50.0 .375 gm In Dextrose/Water 1 50ml.bag @ 12.5 mls/hr IVPB Q8HR [facility] Rx#: [id number] Sodium Chloride 0.9% 1, 450 1800 450 000 ml @ 150 mls/hr IV . Q6H40M [facility] Rx#:[id number] Intake, IV Titration 66.875 250.0 Amount Norepinephrin 4 mg-0.9% 66.875 250.0 Ns Pmx 4 mg In 250 ml @ Titrate IV .Q0M [facility] Rx#: [id number] Output: Urine 110 1085 200 Other: Voiding Method Indwelling Catheter - Exam No acute distress, oriented 3. Nasal O2 in place. HEENT examination is grossly unremarkable. Mucous membranes are moist. No oral lesions. Neck supple. Full range of motion. No adenopathy thyromegaly or neck vein distention. Cardiovascular examination reveals a irregular rhythm and rate. Heart rate about 120 to 1:30. The patient's in atrial fibrillation. No heart murmur noted.. Lungs reveal diminished breath sounds. A few scattered rhonchi. There are some bibasilar crackles.. Abdomen soft bowel sounds are heard. No masses or tenderness. Extremities are intact. No cyanosis clubbing or edema. Skin is without rash or lesion. Neurologic examination is brief but nonfocal. Surgical site from recent laminectomy showing purulent looking drainage. - Labs CBC & Chem 7: 04/19/17 04:18 04/19/17 04:18 Labs: Abnormal Lab Results - Last 24 Hours (Table) 04/19/17 04/19/17 04/19/17 Range/Units 04:15 04:18 04:18 RBC 3.28 L (4.30-5.90) m/uL Hgb 9.8 L (13.0-17.5) gm/dL Hct 31.0 L (39.0-53.0) % Lymphocytes # 0.4 L (1.0-4.8) k/uL PT 19.9 H (9.0-12.0) sec INR 2.2 H (<1.2) APTT 31.9 H (22.0-30.0) sec Carbon Dioxide 18 L (22-30) mmol/L BUN 36 H (9-20) mg/dL Creatinine 1.30 H (0.66-1.25) mg/dL Glucose 117 H (74-99) mg/dL Calcium 7.6 L (8.4-10.2) mg/dL Microbiology - Last 24 Hours (Table) 04/18/17 09:05 Blood Culture - Preliminary Blood No Growth after 24 hours 04/18/17 10:23 Urine Culture - Preliminary Urine,Voided Gram Neg Bacilli 04/18/17 12:34 Gram Stain - Preliminary Back Wound Culture - Preliminary Assessment and Plan Assessment: Assessment Sepsis with septic shock Recent lumbar laminectomy History of CAD Myocardial infarction Hypertension Hyperlipidemia History of sleep apnea syndrome, currently on CPAP History of kidney stones Status post bypass grafting Status post multiple cardiac ablations Previous cardiac catheterization with stent placement Atrial fibrillation with RVR Plan: Plan dated 04/18/2017 The patient will continue on antibiotics. We'll request an infectious disease consult. There has been a Gram stain and culture sent from the drainage from the back. The patient Don is on good antibiotics currently. We'll await ID input there. The patient's currently receiving an adequate fluid resuscitation and norepinephrine for blood pressure support. A CAT scan will be ordered to evaluate the area. The patient may benefit from being transferred back to [place] depending on what is found in the back. Additional recommendations and suggestions are forthcoming. Plan dated 04/19/2017 The patient will be transferred to [place], [place]. The patient will go on some nasal O2 at 2-3 L. The patient will also go on norepinephrine at 4 mcg/ m as well as a saline IV at 1 50 mL an hour. The patient will also be transferred on a Cardizem drip at 10 mg an hour for his atrial fibrillation with rapid ventricular response. In addition, the antibiotics will include Zosyn and vancomycin. His prognosis is guarded. I did speak to the family including his son and . Time with Patient: Greater than 30
[2017-04-19] MEDS ORDERED: HYDROmorphone 0.5 MG/0.5 ML SYRINGE IVP STA (13:43)
[2017-04-19] MEDS ORDERED: ONDANSETRON 4 MG/2 ML VIAL ONE (13:53)
[2017-04-19] MEDS ORDERED: ONDANSETRON 4 MG/2 ML VIAL IVP PRN (13:54)
[2017-04-19 16:52] VITALS: BP 88/53; PULSE 134; RESP 19
== END 2017-04-19 18:15 | disposition other institution (70) | DRG 862 ==
LOC: EC 08:43 → 6ICU 12:00
PROVIDERS: ADMIT Internal Medicine; ATTEND Internal Medicine
DX: T81.4XXA Infection following a procedure, initial encounter (principal); R65.21 Severe sepsis with septic shock; N17.0 Acute kidney failure with tubular necrosis; A41.9 Sepsis, unspecified organism; I42.9 Cardiomyopathy, unspecified; E85.9 Amyloidosis, unspecified; I48.0 Paroxysmal atrial fibrillation; J44.9 Chronic obstructive pulmonary disease, unspecified; D64.9 Anemia, unspecified; E78.5 Hyperlipidemia, unspecified; G47.30 Sleep apnea, unspecified; I10 Essential (primary) hypertension; I25.10 Atherosclerotic heart disease of native coronary artery without angina pectoris; I25.2 Old myocardial infarction; I48.2 Chronic atrial fibrillation; K21.9 Gastro-esophageal reflux disease without esophagitis; N40.0 Benign prostatic hyperplasia without lower urinary tract symptoms; K44.9 Diaphragmatic hernia without obstruction or gangrene; M19.90 Unspecified osteoarthritis, unspecified site; Z79.01 Long term (current) use of anticoagulants; Z79.82 Long term (current) use of aspirin; Z79.899 Other long term (current) drug therapy; Z95.5 Presence of coronary angioplasty implant and graft; Z95.1 Presence of aortocoronary bypass graft; Z85.828 Personal history of other malignant neoplasm of skin; Z87.11 Personal history of peptic ulcer disease; Z82.49 Family history of ischemic heart disease and other diseases of the circulatory system
CPT/HCPCS: 36415; 36556; 71045; 71046; 72131; 80048; 80053; 81003; 82550; 82553; 83605; 83735; 84100; 84484; 85025; 85610; 85730; 87040; 87070; 87077; 87086; 87186; 87205; 87502; 93005; 94660; 96361; 96365; 96366; 96367; 96375; 99291

== ENCOUNTER → 2018-01-13 | Outpatient (CLI) | payer BC, MEDICARE ==
[2018-01-13 15:38] LABS: INR 4.2 (<1.2); Prothrombin Time 37.8 sec (9.0-12.0)
== END | disposition home or self-care (01) ==
LOC: LABWHC1 14:44
PROVIDERS: ATTEND Internal Medicine Clinical Cardiac Electrophysiology
DX: I48.2 Chronic atrial fibrillation (principal)
CPT/HCPCS: 36415; 85610

== ENCOUNTER 2018-05-03 07:13 | Observation (INO) | payer BC, MEDICARE ==
[2018-05-03 09:42] VITALS: BMI 27.2
[2018-05-03] MEDS ORDERED: HEPARIN SODIUM,PORCINE 5,000 UNIT/ML 1 ML VIAL IV PRN (09:56)
[2018-05-03] MEDS ORDERED: HEPARIN SODIUM,PORCINE 5,000 UNIT/ML 1 ML VIAL IV ONE (09:56)
[2018-05-03] MEDS ORDERED: HEPARIN SOD,PORK IN 0.45% NACL 25,000 UNIT in 0.45% NACL 1 250ML.BAG IV SCH (10:00)
[2018-05-03] MEDS ORDERED: ALPRAZolam 0.25 MG TAB PO PRN (10:01)
[2018-05-03] MEDS ORDERED: NITROGLYCERIN SL TABS 0.4 MG TAB SUBLINGUAL PRN (10:01)
[2018-05-03] MEDS ORDERED: ALPRAZolam 0.5 MG TAB PO PRN (10:01)
[2018-05-03] MEDS ORDERED: SODIUM CHLORIDE 0.9% 1,000 ML in EMPTY BAG 1 BAG IV ONE (10:01)
[2018-05-03] MEDS ORDERED: ATORVASTATIN 80 MG TAB PO STA (10:01)
[2018-05-03] MEDS ORDERED: ASPIRIN 325 MG TAB PO STA (10:01)
[2018-05-03] MEDS: ISOSORBIDE MONONITRATE ER 30 MG TAB.ER.24H PO SCH (10:36)
[2018-05-03] MEDS: METOPROLOL SUCCINATE (ER) 100 MG TAB.ER.24H PO SCH (10:37)
[2018-05-03] MEDS: SODIUM CHLORIDE 0.9% 1,000 ML IV SCH ×2 (10:40→22:50)
[2018-05-03 11:32] LABS: Anisocytosis Slight; Basophils # (A) 0.1 k/uL (0-0.2); Basophils % (A) 1 %; Eosinophils # (A) 0.2 k/uL (0-0.7); Eosinophils % (A) 3 %; HCT 34.5 % (39.0-53.0); HGB 10.4 gm/dL (13.0-17.5); Hypochromasia Moderate; Lymphocytes # (A) 0.7 k/uL (1.0-4.8); Lymphocytes % (A) 13 %; MCH 28.8 pg (25.0-35.0); MCHC 30.2 g/dL (31.0-37.0); MCV 95.2 fL (80.0-100.0); Mean Platelet Volume 7.1; Monocytes # (A) 0.4 k/uL (0-1.0); Monocytes % (A) 7 %; Neutrophils # (A) 3.9 k/uL (1.3-7.7); Neutrophils % (A) 74 %; Platelet Count 211 k/uL (150-450); RBC 3.62 m/uL (4.30-5.90); RDW 16.1 % (11.5-15.5); WBC 5.3 k/uL (3.8-10.6)
[2018-05-03 11:40] LABS: Albumin 4.2 g/dL (3.5-5.0); Calcium 9.5 mg/dL (8.4-10.2); INR 3.2 (<1.2); Potassium 4.4 mmol/L (3.5-5.1); Prothrombin Time 30.4 sec (9.0-12.0); Total Bilirubin 1.3 mg/dL (0.2-1.3); Total Protein 6.7 g/dL (6.3-8.2)
[2018-05-03] MEDS: hydrALAZINE HCL 25 MG TAB PO SCH ×2 (17:33→20:40)
--- NOTE | 2018-05-03 18:42 | CONS ---
CONSULTATION REASON FOR CONSULT: Renal failure. HISTORY OF PRESENT ILLNESS: The patient is an 82-year-old male who is admitted to the hospital for cardiac catheterization. The patient was found to have elevated creatinine at 2.3 on 04/23/2018. Review of previous labs shows a serum creatinine of about 1.3-1.7 mg/dL in April of 2017. The patient denies having seen a dermatology procedural physician previously. The labs done this morning showed serum creatinine 2.1. The patient denies use of any nonsteroidal anti-inflammatory agents. Blood pressure has been on the lower side with systolic around 102 and 107 mmHg. The patient has had increasing swelling in his lower extremities along with shortness of breath. He is not aware of his underlying ejection fraction. A SUMMER in 2013 showed normal left ventricular systolic function. At home, the patient was not on any NSAIDs or CODY inhibitors. PAST MEDICAL HISTORY: Significant for coronary artery disease, COPD, hypertension, hyperlipidemia, history of GI bleed, prostatic hyperplasia, skin cancer, obstructive sleep apnea. History of hiatal hernia. Remote history of kidney stone. PAST SURGICAL HISTORY: Coronary artery bypass surgery, cardiac ablation, back surgery, coronary stent placement, bilateral cataract surgery, inguinal hernia repair, cardioversion, and surgery for spinal stenosis. SOCIAL HISTORY: Negative for smoking, drug abuse or alcohol abuse. HOME MEDICATIONS: Include: Hydralazine, Bumex, Lipitor, Coumadin, metoprolol, lisinopril, lansoprazole, Imdur, folic acid, Coumadin. SOCIAL HISTORY: Negative for smoking, drug abuse or alcohol abuse. REVIEW OF SYSTEMS: As per HPI. Other systems negative. No history of fevers or chills. The patient did have some cough. No nausea, vomiting or abdominal pain. PHYSICAL EXAMINATION: Patient is comfortable this morning. Blood pressure was 107/60, heart rate 69 per minute. He is afebrile. Examination of the heart S1, S2. Examination lungs : Bilateral breath sounds are heard. Abdomen is soft, nontender, distended, obese. Examination of lower extremities shows edema 2+ bilaterally. DRYER OPERATOR exam is grossly intact. LAB: From this morning show sodium 141, potassium 4.4, chloride 102, BUN of 55, serum creatinine 2.15, hemoglobin 10.4 g/dL. INR 3.2, calcium 9.5. ASSESSMENT: 1. Chronic kidney disease, most likely secondary to nephrosclerosis. However, patient did have 1+ protein on the current urinalysis. This will need to be worked up and quantified. He does not have any underlying diabetes. I will check an ultrasound of the kidneys as well. Baseline creatinine appears to be around 1.3-1.5 mg/dL. However, creatinine was as high as 1.7 in April of 2017. 2. Acute kidney injury, most likely cardiorenal. The blood pressures are on the lower side. We will check accurate I's and O's. The patient can be maintained on gentle IV hydration. I will check a chest x-ray as well. He is not on any nephrotoxic medications. If volume status does not improve, we may need to consider inotropic agents depending on the ejection fraction. 3. Coronary artery disease with history of coronary artery bypass surgery for possible cardiac catheterization. 4. Anemia, rule out iron deficiency. 5. History of atrial fibrillation. 6. Obstructive sleep apnea. 7. Dyslipidemia. 8. History of hypertension. PLAN: Maintain IV fluids at 50 mL an hour. Avoid excessive IV fluid administration. Check a chest x-ray. Check ultrasound of the kidneys. Check echocardiogram for ejection fraction. Consider inotropic agents if ejection fraction is low as patient is hypervolemic. Blood pressure is on the lower side. I will add parameters for the hydralazine. I will also check iron studies and start patient on Procrit if he is iron replete. Thank you for this consultation. We will continue to follow the patient with you during his hospitalization. MMODL / IJN: [id number] /
--- NOTE | 2018-05-03 20:59 | XR ---
EXAMINATION TYPE: XR chest 1V DATE OF EXAM: 05/03/2018 CLINICAL HISTORY: Difficulty breathing and CHF progress study. TECHNIQUE: Single AP portable upright view of the chest is obtained. COMPARISON: Chest x-ray from April 19, 2017 FINDINGS: Osseous structures are demineralized. Degenerative change right glenohumeral joint is redem onstrated. Overlying sternal wires and mediastinal clips are redemonstrated. Cardiomegaly is seen mo re prominent from prior study. There are new left greater than right bibasilar opacities. Upper lung is clear without pneumothorax. IMPRESSION: Findings consistent with CHF exacerbation now identified as there is more prominent cardi omegaly with small left greater than right pleural effusions and associated bibasilar atelectasis and /or infiltrate all identified on current study
[2018-05-03] MEDS ORDERED: ATORVASTATIN 40 MG TAB PO SCH (21:00)
--- NOTE | 2018-05-03 21:08 | US ---
EXAMINATION TYPE: US renals and bladder DATE OF EXAM: 05/03/2018 COMPARISON: CT lumbar spine April 18, 2017 CLINICAL HISTORY: rf. Frequent urination. EXAM MEASUREMENTS: Right Kidney: 10.5 x 4.3 x 3.7 cm Left Kidney: 10.3 x 4.7 x 4.0 cm Right Kidney: No hydronephrosis or masses seen Left Kidney: No hydronephrosis or masses seen Bladder: wnl Bilateral Jets seen: Yes There is no evidence for hydronephrosis at this point in time. Some cortical thinning bilaterally is present worse in the right kidney. Visualized liver adjacent to right kidney is heterogeneously hyper echoic consistent with fatty infiltration No nephrolithiasis is seen. No masses are identified. The urinary bladder is not greatly distended. Bilateral ureteral jets are seen towards the end of study . IMPRESSION: Findings consistent with product of chronic medical renal disease redemonstrated. No hydronephrosis i s evident bilaterally.
[2018-05-04 06:19] LABS: Anisocytosis Slight; Basophils # (A) 0.1 k/uL (0-0.2); Basophils % (A) 1 %; Eosinophils # (A) 0.4 k/uL (0-0.7); Eosinophils % (A) 5 %; HGB 10.9 gm/dL (13.0-17.5); Hypochromasia Marked; Lymphocytes # (A) 1.2 k/uL (1.0-4.8); Lymphocytes % (A) 17 %; MCH 29.2 pg (25.0-35.0); MCHC 30.2 g/dL (31.0-37.0); MCV 96.5 fL (80.0-100.0); Macrocytosis Slight; Mean Platelet Volume 7.7; Monocytes # (A) 0.4 k/uL (0-1.0); Monocytes % (A) 6 %; Neutrophils # (A) 4.8 k/uL (1.3-7.7); Neutrophils % (A) 69 %; Platelet Count 248 k/uL (150-450); RBC 3.73 m/uL (4.30-5.90); RDW 16.3 % (11.5-15.5)
[2018-05-04 06:24] LABS: INR 2.6 (<1.2); Prothrombin Time 25.3 sec (9.0-12.0)
[2018-05-04] MEDS ORDERED: FUROSEMIDE 10 MG/ML 4 ML VIAL IV STA (08:32)
[2018-05-04] MEDS: hydrALAZINE HCL 25 MG TAB PO SCH ×2 (08:40→17:35)
[2018-05-04] MEDS: ISOSORBIDE MONONITRATE ER 30 MG TAB.ER.24H PO SCH (08:40)
[2018-05-04] MEDS: METOPROLOL SUCCINATE (ER) 100 MG TAB.ER.24H PO SCH (08:49)
[2018-05-04 08:52] LABS: Calcium 9.7 mg/dL (8.4-10.2); Potassium 4.4 mmol/L (3.5-5.1)
[2018-05-04] MEDS ORDERED: LIDOCAINE 1% INJ 10MG/ML (20 ML MDV) ONE (11:44)
[2018-05-04 11:52] VITALS: PULSE 67; RESP 20; TEMP 96.8
[2018-05-04 12:30] LABS: Iron Saturation 16.46 (15.00-50.00)
[2018-05-04 17:37] VITALS: BP 106/67
--- NOTE | 2018-05-04 22:34 | PN ---
PROGRESS NOTE The patient is seen for followup for acute kidney injury and chronic kidney disease. The patient was seen by Dr. Ortiz. The cardiac cath is currently held and patient is going home for followup as outpatient. His serum creatinine came back at 2.13 today. 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 He received a dose of IV Lasix this morning and IV fluids are now discontinued. PHYSICAL EXAMINATION: Blood pressure was 119/67, heart rate 67 per minute. Patient is afebrile. Examination of the heart S1, S2. Examination of the lungs bilateral breath sounds are heard. Abdomen is soft, nontender. Examination of lower extremities shows edema 2+ bilaterally. TELECOMMUNICATIONS REPAIRER exam is grossly intact. LAB: Show sodium 140, potassium 4.4, BUN 58, serum creatinine 2.1, hemoglobin 10.9 g/dL. ASSESSMENT: 1. Chronic kidney disease and NKF stage IIIB to stage IV with current creatinine staying at about 2.1 mg/dL. Previously, serum creatinine had been at 1.5-1.3 mg/dL on 05/01/2017. Ultrasound of the kidneys done last night does not show any evidence of hydronephrosis. I will maintain the patient on his home diuretics which is the Bumex and follow up as outpatient. We will hold off on the fluids and give a dose of IV Lasix prior to discharge. The patient had been on angiotensin receptor blockers as outpatient which was held this admission. His blood pressure was significantly low this morning as low as 80 mmHg for systolic. 2. Hypertension, blood pressure currently low. 3. 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 4. Iron deficiency anemia. PLAN: Follow up as outpatient in about 2 weeks time. Continue with Bumex. Hold off on angiotensin receptor blockers for now as blood pressure was as low as 80 mmHg systolic. Adjust diuretics as outpatient. We will arrange for IV iron as outpatient. MMODL / IJN: [id number] /
--- NOTE | 2018-05-05 00:49 | PN ---
PROGRESS NOTE ATTENDING PHYSICIAN: Dr. Cho. CONSULTING PHYSICIAN: Dr. Talat Montanez. DATE OF SERVICE: 05/04/2018. CHIEF COMPLAINT: Re-evaluation. HISTORY OF PRESENT ILLNESS: This gentleman was admitted to the hospital because of worsening renal status, atrial fibrillation, and congestive cardiac failure. The patient, following admission, was seen by Nephrology and was cautiously hydrated. The patient's renal status is really not improved much. His BUN is 58, creatinine 2.13. He did have ultrasound of the kidneys done, which revealed no evidence of hydronephrosis, some cortical thinning bilaterally, worse in the right kidney. No nephrolithiasis seen. REVIEW OF SYSTEMS: NEURO: Denies any headaches or dizziness. PSYCH: No anxiety. CARDIAC: No chest pain, angina, palpitations. RESPIRATORY: Denied shortness of breath. He did sleep reasonably well with an elevated head consistent with orthopnea. GI: Denies any nausea, vomiting, abdominal pain, diarrhea. : No symptoms of dysuria or hematuria. EXTREMITIES: No pain. Feels his edema is down, however, the patient has been in bed. CONSTITUTIONAL: No fevers or chills. PHYSICAL EXAMINATION: Pleasant gentleman, at present in no distress. VITAL SIGNS: Temperature 97.6, pulse 72, respirations 16, blood pressure 102/70, pulse ox 95 percent on 2 L. HEENT: Normocephalic. NECK: 2+ JVD. CHEST: Dullness to percussion bilateral bases, left greater than right. Lung kim otherwise clear. CARDIAC: Distant heart sounds. S1, S2 with no gallops. Irregularly, irregular rhythm. Systolic murmur 2/6 left sternal border. ABDOMEN: Soft. Bowel sounds present. Mildly protuberant. EXTREMITIES: Edema. No tenderness. NEUROLOGIC: Awake, alert, oriented with well-coordinated movements. LABORATORY ASSESSMENT: CBC which revealed hemoglobin 10.9, white count is normal. INR 2.6. BUN 58, creatinine 2.13. Electrolytes normal. ASSESSMENT: 1. Acute on chronic renal failure secondary to hypertensive nephrosclerosis. 2. Chronic congestive cardiac failure secondary to systolic and diastolic dysfunction. 3. Cardiac amyloidosis. 4. Chronic atrial fibrillation. 5. Chronic anemia. 6. Obstructive sleep apnea on CPAP. PLAN: Continue present medical regimen. Since the patient's renal status is not adequate enough for cardiac catheterization, the patient is planned for discharge to continue on medical therapy. The patient's condition was discussed with Dr. Cho today and Dr. Mary from Cardiology. MMSHARA / LANI: [id number] /
--- NOTE | 2018-05-05 05:31 | CONS ---
CONSULTATION REASON FOR CONSULTATION: Consultation regarding medical management. DATE OF CONSULT: 05/03/2018 CHIEF COMPLAINT: Dyspnea on exertion. HISTORY OF PRESENT ILLNESS: This 82-year-old gentleman was seen in the evening of 05/03/2018. I met with both his , daughter and son with the patient. The patient was admitted to the hospital in view of his cardiac status worsening. The weather clerk wanted the patient to be catheterized to see if he had any possible blockages as his stress test has shown some ischemia in the lateral wall. The patient had no symptoms. He does have dyspnea on exertion, which is worsening. He has increased symptoms of right-sided failure. He has increased edema and some JVD. The patient has a history of chronic atrial fibrillation, history of cardiac amyloidosis. The patient has had history of chronic atrial fibrillation, has been previously converted to sinus rhythm with electrophysiological ablations. However, the patient is back into atrial fibrillation for the past at least 6 to 9 months. The patient this admission is also noted to have progressive renal failure. This is somewhat of a new finding for him. PAST MEDICAL HISTORY: As mentioned above, history of coronary artery disease with previous CABG, history of chronic atrial fibrillation, coronary artery disease, dilated ischemic cardiomyopathy, as well as infiltrating cardiomyopathy with amyloidosis. History of peptic ulcer disease with bleeding in the past and gastroesophageal reflux with esophageal stricture requiring dilatation periodically. History of spinal stenosis with lumbar surgery x2. Recent right hip surgery. Also history of BPH. PAST SURGICAL HISTORY: Significant for right inguinal herniorrhaphy, CABG 27 years ago, bilateral cataracts, EGD, EGD with esophageal dilatation, lumbar surgery x2, right hip arthroplasty. PERSONAL HISTORY: Never a smoker. Alcohol occasional glass of wine. FAMILY MEDICAL HISTORY: Father at the age of 62 of acute myocardial infarction. Mother at the age of 57 from CA of the breast. The patient has a brother who with a history of coronary artery disease. Two sisters both history of coronary artery disease, atherosclerotic heart disease. The patient has a daughter in adequate health and two sons both with atrial fibrillation. SOCIAL HISTORY: Patient is , lives with spouse. Works part-time. MEDICATIONS: Medications included Hydralazine 25 mg t.i.d., Bumex 1 mg daily, Lipitor 40 mg daily, Coumadin 5 mg daily, Nitrostat sublingual p.r.n., metoprolol succinate 200 mg daily, lansoprazole 30 mg daily, Imdur 30 mg daily, folic acid 0.4 mg b.i.d. REVIEW OF SYSTEMS: NEURO: Denies any headaches, dizziness. No double vision, blurred vision. No symptoms of TIA, syncope, seizures. PSYCH: No anxiety or depression. CARDIAC: Denies chest pain, angina, palpitations. RESPIRATORY: Shortness of breath, orthopnea. Denies PND. GI: Denies any nausea, vomiting, abdominal pain, diarrhea, constipation, hematochezia, melena. : No symptoms of dysuria, hematuria. Does have frequency. EXTREMITIES: Edema. CONSTITUTIONAL: No fever or chills. PHYSICAL EXAMINATION: Pleasant gentleman in no distress. Vital signs revealed temperature 97.5, pulse 67, respirations 15, blood pressure 122/60, pulse ox 98% 2 L. HEENT: Normocephalic. Neck is supple. Pupils reactive. Oral cavity is moist. Ears reveal no drainage. Neck reveals JVD 2+. CHEST EXAMINATION: Dullness to percussion left base otherwise lung kim clear. CARDIAC: Distant heart sounds, S1, S2 with no gallop. Systolic murmur 2/6 left sternal border and apex. Rhythm is irregularly, irregular. ABDOMEN: Soft. No palpable masses. Bowel sounds normal. No organomegaly. Possibility of some ascites as it is protuberant. Extremities revealed edema 2 to 3+. Neurologically: Awake, alert, oriented with well-coordinated movements. LABORATORY ASSESSMENT: Chest x-ray which revealed more prominent cardiomegaly with left greater than right pleural effusion with atelectasis. Hemoglobin 10.4, platelets 211. INR 3.2. BUN 55, creatinine 2.15. ASSESSMENT: 1. Atrial fibrillation, chronic. 2. Chronic congestive cardiac failure, predominantly systolic and diastolic dysfunction. 3. Cardiac amyloidosis. 4. Anemia, chronic. 5. Anticoagulated status. 6. Acute on chronic renal failure. PLAN: The patient was admitted to the hospital because the catheterization was canceled as the renal status was poor. The patient has been seen by Nephrology and started on IV hydration. The patient's condition discussed with the patient, son, and daughter. Prognosis remains guarded. The cardiac catheterization will be held until his INR is down. The patient's renal status is to the point that catheterization may not be possible at this point. Continue present medical regimen. Patient's condition discussed with the patient and family. MMRENANL / SILVANAN: [id number] /
== END 2018-05-04 18:07 | disposition home health service (06) ==
LOC: 3SCARD 07:48
PROVIDERS: ADMIT Internal Medicine Cardiovascular Disease; ATTEND Internal Medicine Cardiovascular Disease
DX: N17.9 Acute kidney failure, unspecified (principal); I13.0 Hypertensive heart and chronic kidney disease with heart failure and stage 1 through stage 4 chronic kidney disease, or unspecified chronic kidney disease; N18.4 Chronic kidney disease, stage 4 (severe); I50.42 Chronic combined systolic (congestive) and diastolic (congestive) heart failure; I48.1 Persistent atrial fibrillation; I25.118 Atherosclerotic heart disease of native coronary artery with other forms of angina pectoris; I48.2 Chronic atrial fibrillation; R94.39 Abnormal result of other cardiovascular function study; E85.4 Organ-limited amyloidosis; I42.5 Other restrictive cardiomyopathy; D50.9 Iron deficiency anemia, unspecified; D75.89 Other specified diseases of blood and blood-forming organs; E78.2 Mixed hyperlipidemia; N40.0 Benign prostatic hyperplasia without lower urinary tract symptoms; J44.9 Chronic obstructive pulmonary disease, unspecified; G47.33 Obstructive sleep apnea (adult) (pediatric); K44.9 Diaphragmatic hernia without obstruction or gangrene; N18.9 Chronic kidney disease, unspecified; Z99.89 Dependence on other enabling machines and devices; I25.2 Old myocardial infarction; Z79.01 Long term (current) use of anticoagulants; Z79.899 Other long term (current) drug therapy; Z85.828 Personal history of other malignant neoplasm of skin; Z87.19 Personal history of other diseases of the digestive system; Z87.442 Personal history of urinary calculi; Z95.5 Presence of coronary angioplasty implant and graft; Z98.42 Cataract extraction status, left eye; Z98.41 Cataract extraction status, right eye; Z96.641 Presence of right artificial hip joint; Z95.1 Presence of aortocoronary bypass graft; Z82.49 Family history of ischemic heart disease and other diseases of the circulatory system; Z80.3 Family history of malignant neoplasm of breast
CPT/HCPCS: 96376; 96365; 96366; 96375; 80053; 80048; 83540; 83550; 85025 ×2; 85610 ×2; 85730 ×2; 71045; 76770; G0378 ×2; G0379; J1644 ×2; J1940

== ENCOUNTER 2018-07-15 12:01 | Inpatient (IN) | payer BC, MEDICARE ==
[2018-07-19 10:27] LABS: Anisocytosis Slight; Basophils # (A) 0.1 k/uL (0-0.2); Basophils % (A) 1 %; Eosinophils # (A) 0.4 k/uL (0-0.7); Eosinophils % (A) 5 %; HGB 11.2 gm/dL (13.0-17.5); Hypochromasia Moderate; Lymphocytes # (A) 0.9 k/uL (1.0-4.8); Lymphocytes % (A) 13 %; MCH 29.8 pg (25.0-35.0); MCHC 31.2 g/dL (31.0-37.0); MCV 95.5 fL (80.0-100.0); Mean Platelet Volume 6.9; Monocytes # (A) 0.4 k/uL (0-1.0); Monocytes % (A) 6 %; Neutrophils # (A) 4.8 k/uL (1.3-7.7); Neutrophils % (A) 73 %; Platelet Count 262 k/uL (150-450); RBC 3.77 m/uL (4.30-5.90); RDW 16.5 % (11.5-15.5); WBC 6.6 k/uL (3.8-10.6)
[2018-07-19 10:28] LABS: INR 2.1 (<1.2); Prothrombin Time 20.6 sec (9.0-12.0)
[2018-07-19 10:38] LABS: Albumin 3.9 g/dL (3.5-5.0); Calcium 9.3 mg/dL (8.4-10.2); Potassium 3.9 mmol/L (3.5-5.1); Total Protein 6.5 g/dL (6.3-8.2)
[2018-07-19] MEDS ORDERED: SODIUM CHLORIDE 0.9% 1,000 ML IV SCH ×4 (11:00)
[2018-07-19] MEDS: FUROSEMIDE 100 MG in SODIUM CHLORIDE 0.9% 90 ML IV SCH ×2 (12:41→20:48)
[2018-07-19] MEDS: FOLIC ACID 1 MG TAB PO SCH (15:17)
--- NOTE | 2018-07-19 18:33 | P.HPCAR ---
History of Present Illness This is Dr. Ortiz dictating an admission h/p on this patient The patient was interviewed and examined by me IMPRESSION / ASSESSMENT: Severe diastolic heart failure secondary to cardiac amyloidosis/restrictive cardio myopathy Fluid overload, shortness of breath at rest, orthopnea Exacerbated by atrial fibrillation with RVR despite AV margie blocking drugs A. fib with RVR occurs with minimal exertion Coronary artery disease status post coronary artery bypass grafting in the past Elevated daytime heart rates PLAN: IV Lasix drip 10 mg an hour Spironolactone 25 mg by mouth daily TSH Biventricular pacemaker tomorrow once he diuresed well and is able to lie flat comfortably for the procedure AV node modification thereafter Initiate levothyroxine 25 g by mouth daily and recheck TSH once again before that to confirm the abnormality in the laboratory value HPI Increasing shortness of breath with minimal exertion, progressive Shortness of breath at rest Orthopnea Distended abdomen/ascites Bilateral lower extremity edema Condition deteriorating steadily Detailed discussion with the patient and his family for attempting biventricular pacing with AV node ablation to control heart rates during atrial fibrillation and avoid RVR to assist in the management of restrictive cardio myopathy with heart failure ROS: No fever chills or rigors, no cough, phlegm or expectoration, no nausea, vomiting or diarrhea, no hematuria, dysuria, no musculoskeletal complaints, no strokes or seizures, no skin lesions. EXAMINATION: 102/56. His mercury, resting heart rates in the 70s, afebrile 97.5F JVD positive Distended abdomen ascites Bilateral lower extremity edema Heart sounds are irregular no murmurs REVIEW OF LABS, ECG & MEDICAL DATA Hemoglobin 11.2 INR 2.1 Sodium 140, potassium 3.9, BUN 41, creatinine 2.1, TSH 8.0 Physical Exam Vitals: Vital Signs Temp Pulse Resp BP Pulse Ox 07/19/18 16:00 97.6 F 67 20 102/69 96 07/19/18 12:00 97.5 F L 70 20 102/56 99 Intake and Output 07/19/18 07/19/18 07/19/18 06:59 14:59 22:59 Intake Total 370 380 Output Total 100 Balance 370 280 Intake: IV 10 20 Invasive Line 1 10 10 Invasive Line 2 10 Oral 360 360 Output: Urine 100 Other: # Voids 125 Weight 92.986 kg Past Medical History Past Medical History: Atrial Fibrillation, Heart Failure, COPD, Hyperlipidemia, Myocardial Infarction ([place]), Skin Disorder, Sleep Apnea/CPAP/BIPAP Additional Past Medical History / Comment(s): Dr Ortiz's H&P,recent increase SOB. HX SKIN PRE-CA LESIONS. hx HIATAL HERNIA. HX KIDNEY STONE.. see Dr Cho H&P, spouse hx GI bleed 10 years ago, dry itchy skin Last Myocardial Infarction Date:: UNKNOWN History of Any Multi-Drug Resistant Organisms: None Reported Past Surgical History: Ablation, Back Surgery, Cardiac Ablation, Coronary Bypass/CABG, Heart Catheterization With Stent, Hernia Repair, Joint Replacement, Orthopedic Surgery Additional Past Surgical History / Comment(s): BELLA CATARACTS; carpal tunnel BELLA, TRIPLE CABG age 56; LT ING HERNIA REPAIR; CARDIOVERSION; CARDIAC ABLATION X4, ATTEMPT X1 - LAST DONE 06/27/13 AT [facility], [facility] FOR SPINAL STENOSIS, left hip replacement, 2 cardiac stents Past Anesthesia/Blood Transfusion Reactions: No Reported Reaction Date of Last Stent Placement:: unknown Past Psychological History: No Psychological Hx Reported Smoking Status: Never smoker Past Alcohol Use History: None Reported Past Drug Use History: None Reported - Past Family History Mother Family Medical History: Cancer Additional Family Medical History / Comment(s): breast Physical Examination Vital Signs Temp Pulse Resp BP Pulse Ox 07/19/18 16:00 97.6 F 67 20 102/69 96 07/19/18 12:00 97.5 F L 70 20 102/56 99 Intake and Output 07/19/18 07/19/18 07/19/18 06:59 14:59 22:59 Intake Total 370 380 Output Total 100 Balance 370 280 Intake: IV 10 20 Invasive Line 1 10 10 Invasive Line 2 10 Oral 360 360 Output: Urine 100 Other: # Voids 125 Weight 92.986 kg Results 07/19/18 10:05 07/19/18 10:05 Cardiac Enzymes 07/19/18 Range/Units 10:05 AST 25 (17-59) U/L Coagulation 07/19/18 Range/Units 10:05 PT 20.6 H (9.0-12.0) sec CBC 07/19/18 Range/Units 10:05 WBC 6.6 (3.8-10.6) k/uL RBC 3.77 L (4.30-5.90) m/uL Hgb 11.2 L (13.0-17.5) gm/dL Hct 36.0 L (39.0-53.0) % Plt Count 262 (150-450) k/uL Comprehensive Metabolic Panel 07/19/18 Range/Units 10:05 Sodium 140 (137-145) mmol/L Potassium 3.9 (3.5-5.1) mmol/L Chloride 97 L (98-107) mmol/L Carbon Dioxide 35 H (22-30) mmol/L BUN 41 H (9-20) mg/dL Creatinine 2.09 H (0.66-1.25) mg/dL Glucose 91 (74-99) mg/dL Calcium 9.3 (8.4-10.2) mg/dL AST 25 (17-59) U/L ALT 12 L (21-72) U/L Alkaline Phosphatase 88 (38-126) U/L Total Protein 6.5 (6.3-8.2) g/dL Albumin 3.9 (3.5-5.0) g/dL Current Medications Generic Name Dose Route Start Last Admin Trade Name Freq PRN Reason Stop Dose Admin Atorvastatin Calcium 40 mg 07/19/18 21:00 Lipitor PO HS CELIO Cefazolin Sodium 2 gm 07/20/18 07:00 Kefzol IVP 07/20/18 07:01 ONCE ONE Folic Acid 1 mg 07/19/18 12:00 07/19/18 15:17 Folic Acid PO 1 mg DAILY@1200 CELIO Administration Furosemide 100 mg/ Sodium 100 mls @ 10 mls/hr 07/19/18 11:00 07/19/18 12:41 Chloride IV 10 mg/hr .Q10H CELIO 10 mls/hr Administration 10 MG/HR Cefazolin Sodium 1,000 mg/ 250 mls @ 500 mls/hr 07/20/18 07:00 Sodium Chloride IRRIGATION 07/20/18 07:29 ONCE ONE Levothyroxine Sodium 25 mcg 07/20/18 06:30 Synthroid PO DAILY@0630 [facility] Metoprolol Succinate 200 mg 07/20/18 09:00 Toprol Xl PO DAILY CELIO Pantoprazole Sodium 40 mg 07/20/18 07:30 Protonix PO AC-BRKFST [facility] Spironolactone 25 mg 07/19/18 18:00 Aldactone PO DAILY [facility] Intake and Output 07/19/18 07/19/18 07/19/18 06:59 14:59 22:59 Intake Total 370 380 Output Total 100 Balance 370 280 Intake: IV 10 20 Invasive Line 1 10 10 Invasive Line 2 10 Oral 360 360 Output: Urine 100 Other: # Voids 125 Weight 92.986 kg Patient Weight 07/20/18 06:59 Weight 92.986 kg 07/19/18 10:05 07/19/18 10:05
[2018-07-19] MEDS: SPIRONOLACTONE 25 MG TAB PO SCH (18:52)
[2018-07-19] MEDS ORDERED: LACTATED RINGERS 1,000 ML IV SCH (19:00)
[2018-07-19] MEDS: ATORVASTATIN 40 MG TAB PO SCH (20:47)
[2018-07-20] MEDS: LEVOTHYROXINE 25 MCG TAB PO SCH (06:39)
[2018-07-20] MEDS: METOPROLOL SUCCINATE (ER) 100 MG TAB.ER.24H PO SCH (06:39)
[2018-07-20] MEDS: PANTOPRAZOLE 40 MG TABLET PO SCH (06:47)
[2018-07-20] MEDS: FUROSEMIDE 100 MG in SODIUM CHLORIDE 0.9% 90 ML IV SCH (06:51)
[2018-07-20 06:55] LABS: Prothrombin Time 19.7 sec (9.0-12.0)
[2018-07-20] MEDS ORDERED: ceFAZolin 1,000 MG in SODIUM CHLORIDE 0.9% IRRIGATIO 250 ML IRRIGATION ONE (07:00)
[2018-07-20] MEDS ORDERED: ceFAZolin IN SWFI 2 GM/20 ML SYRINGE IVP ONE (07:00)
[2018-07-20 07:06] LABS: Calcium 9.5 mg/dL (8.4-10.2)
[2018-07-20] MEDS: SPIRONOLACTONE 25 MG TAB PO SCH (07:54)
[2018-07-20] MEDS ORDERED: AMIODARONE 360 MG in DEXTROSE 5% IN WATER 200 ML IV ONE ×2 (08:29)
[2018-07-20] MEDS ORDERED: DEXTROSE 5% IN WATER 100 ML with AMIODARONE 300 MG IV ONE (08:29)
--- NOTE | 2018-07-20 08:31 | P.PN ---
Subjective Patient is resting in a chair. He took a fall last evening and landed on his right knee. Feeling better now, no significant pain or tenderness at this point upon my examination He feels his breathing is a little better although he does not lay flat in bed. His neck veins are less prominent today Afebrile 97.9F Also rate in the 80s Irregular Breath sounds are reduced but with her no rhonchi no crackles Heart sounds are irregular but normal no murmurs or gallops. 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 and while rate control with exertion is important for symptomatic management and heart failure therapy, maintenance of sinus rhythm would definitely help However the likelihood of maintenance of sinus rhythm is low but I will give to try with a short duration amiodarone for a few months Coumadin levels will be monitored TSH will be repeated to check if this truly at 8.0 Synthroid 25 g by mouth daily was begun yesterday Objective - Vital Signs Vital signs: Vital Signs Temp 97.9 F 07/20/18 04:00 Pulse 81 07/20/18 04:00 Resp 18 07/20/18 04:00 BP 102/58 07/20/18 04:00 Pulse Ox 97 07/20/18 04:00 Intake & Output 07/19/18 07/20/18 07/20/18 18:59 06:59 18:59 Intake Total 750 291.167 Output Total 175 1100 700 Balance 575 -808.833 -700 Weight 92.986 kg 94.8 kg Intake: IV 30 30 Invasive Line 1 20 Invasive Line 2 10 30 Intake, IV Titration 181.167 Amount Furosemide 100 mg In 181.167 Sodium Chloride 0.9% 90 ml @ 10 MG/HR 10 mls/hr IV .Q10H CELIO Rx#: [id number] Oral 720 80 Output: Urine 175 1100 700 Other: # Voids 125 2 2 - Labs CBC & Chem 7: 07/19/18 10:05 07/20/18 05:56 Labs: Abnormal Lab Results - Last 24 Hours (Table) 07/19/18 07/19/18 07/19/18 Range/Units 10:05 10:05 10:05 RBC 3.77 L (4.30-5.90) m/uL Hgb 11.2 L (13.0-17.5) gm/dL Hct 36.0 L (39.0-53.0) % RDW 16.5 H (11.5-15.5) % Lymphocytes # 0.9 L (1.0-4.8) k/uL PT 20.6 H (9.0-12.0) sec INR 2.1 H (<1.2) Chloride 97 L (98-107) mmol/L Carbon Dioxide 35 H (22-30) mmol/L BUN 41 H (9-20) mg/dL Creatinine 2.09 H (0.66-1.25) mg/dL ALT 12 L (21-72) U/L TSH 8.060 H (0.465-4.680) mIU/L 07/20/18 07/20/18 Range/Units 05:56 05:56 RBC (4.30-5.90) m/uL Hgb (13.0-17.5) gm/dL Hct (39.0-53.0) % RDW (11.5-15.5) % Lymphocytes # (1.0-4.8) k/uL PT 19.7 H (9.0-12.0) sec INR 2.0 H (<1.2) Chloride 94 L (98-107) mmol/L Carbon Dioxide 36 H (22-30) mmol/L BUN 42 H (9-20) mg/dL Creatinine 2.02 H (0.66-1.25) mg/dL ALT (21-72) U/L TSH 6.780 H (0.465-4.680) mIU/L
--- NOTE | 2018-07-20 08:48 | P.CNOR ---
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 Patient is admitted for multiple cardiac issues. Orthopedics was consulted due to right knee pain after a fall. Patient states that he was standing using his urinal when he lost his balance and landed onto the right knee. Patient states that he has been up and walking and is able to bear full weight on the right lower extremity after this fall. Patient is on Coumadin and will have electrical cardioversion performed today, per Dr. Ortiz. Patient denies any numbness, weakness, tingling, hip pain or back pain. Review of Systems See HPI. Past Medical History Past Medical History: Atrial Fibrillation, Heart Failure, COPD, Hyperlipidemia, Myocardial Infarction (ME), Skin Disorder, Sleep Apnea/CPAP/BIPAP Additional Past Medical History / Comment(s): Dr Ortiz's H&P,recent increase SOB. HX SKIN PRE-CA LESIONS. hx HIATAL HERNIA. HX KIDNEY STONE.. see Dr Rangel mittal H&P, spouse hx GI bleed 10 years ago, dry itchy skin Last Myocardial Infarction Date:: UNKNOWN History of Any Multi-Drug Resistant Organisms: None Reported Past Surgical History: Ablation, Back Surgery, Cardiac Ablation, Coronary Bypass/CABG, Heart Catheterization With Stent, Hernia Repair, Joint Replacement, Orthopedic Surgery Additional Past Surgical History / Comment(s): BELLA CATARACTS; carpal tunnel BELLA, TRIPLE CABG age 56; LT ING HERNIA REPAIR; CARDIOVERSION; CARDIAC ABLATION X 4, ATTEMPT X1 - LAST DONE 06/27/13 AT [facility] FOR SPINAL STENOSIS, left hip replacement, 2 cardiac stents Past Anesthesia/Blood Transfusion Reactions: No Reported Reaction Date of Last Stent Placement:: unknown Past Psychological History: No Psychological Hx Reported Smoking Status: Never smoker Past Alcohol Use History: None Reported Past Drug Use History: None Reported - Past Family History Mother Family Medical History: Cancer Additional Family Medical History / Comment(s): breast Medications and Allergies Home Medications Medication Instructions Recorded Confirmed Type Atorvastatin [Lipitor] 40 mg PO HS 08/25/13 07/19/18 History Folic Acid 0.4 mg PO BID 08/25/13 07/19/18 History Lansoprazole 30 mg PO DAILY 08/25/13 07/19/18 History Warfarin [Coumadin] 2.5 mg PO HS 08/25/13 07/19/18 History Bumetanide [BUMEX] 2 mg PO DAILY 04/29/18 07/19/18 History Metoprolol Succinate 200 mg PO DAILY 04/29/18 07/19/18 History Nitroglycerin Sl Tabs [Nitrostat] 0.4 mg SUBLINGUAL Q5M PRN 04/29/18 07/19/18 History Bumetanide [Bumex] 1 mg PO DAILY@1500 07/19/18 07/19/18 History Allergies Allergy/AdvReac Type Severity Reaction Status Date / Time No Known Allergies Allergy Verified 07/19/18 11:16 Physical Examination On exam patient is sitting comfortably in a chair in no acute distress. Patient is alert and oriented 3. There is no tenderness to palpation over the right knee. Patient has full range of motion of the right knee. Patient has 2+ pitting edema to bilateral lower extremities. There is no ligamentous instabili ty. Calf is soft and nontender to palpation. Sensation intact. Neurovascular status and circulatory status are intact. Results - Labs Labs: Abnormal Lab Results - Last 24 Hours (Table) 07/19/18 07/19/18 07/19/18 Range/Units 10:05 10:05 10:05 RBC 3.77 L (4.30-5.90) m/uL Hgb 11.2 L (13.0-17.5) gm/dL Hct 36.0 L (39.0-53.0) % RDW 16.5 H (11.5-15.5) % Lymphocytes # 0.9 L (1.0-4.8) k/uL PT 20.6 H (9.0-12.0) sec INR 2.1 H (<1.2) Chloride 97 L (98-107) mmol/L Carbon Dioxide 35 H (22-30) mmol/L BUN 41 H (9-20) mg/dL Creatinine 2.09 H (0.66-1.25) mg/dL ALT 12 L (21-72) U/L TSH 8.060 H (0.465-4.680) mIU/L 07/20/18 07/20/18 Range/Units 05:56 05:56 RBC (4.30-5.90) m/uL Hgb (13.0-17.5) gm/dL Hct (39.0-53.0) % RDW (11.5-15.5) % Lymphocytes # (1.0-4.8) k/uL PT 19.7 H (9.0-12.0) sec INR 2.0 H (<1.2) Chloride 94 L (98-107) mmol/L Carbon Dioxide 36 H (22-30) mmol/L BUN 42 H (9-20) mg/dL Creatinine 2.02 H (0.66-1.25) mg/dL ALT (21-72) U/L TSH 6.780 H (0.465-4.680) mIU/L H & H 07/19/18 Range/Units 10:05 Hgb 11.2 L (13.0-17.5) gm/dL Hct 36.0 L (39.0-53.0) % Coagulation 07/19/18 07/20/18 Range/Units 10:05 05:56 INR 2.1 H 2.0 H (<1.2) Result Diagrams: 07/19/18 10:05 07/20/18 05:56 Assessment and Plan (1) Contusion of right knee Current Visit: Yes Status: Acute Code(s): S80.01XA - CONTUSION OF RIGHT KNEE, INITIAL ENCOUNTER SNOMED Code(s): 33447452 (2) Heart failure Current Visit: Yes Status: Acute Code(s): I50.9 - HEART FAILURE, UNSPECIFIED SNOMED Code(s): 47986232 (3) Atrial fibrillation Current Visit: No Status: Acute Code(s): I48.91 - UNSPECIFIED ATRIAL FI BRILLATION SNOMED Code(s): 19458826 Plan: 1. X-rays of the right knee are pending. 2. Rest, ice and elevate the lower extremity as needed. 3. Further recommendations pending x-ray results.
--- NOTE | 2018-07-20 09:08 | XR ---
EXAMINATION TYPE: XR knee complete RT DATE OF EXAM: 07/20/2018 CLINICAL HISTORY: pain TECHNIQUE: Three views of the right knee are obtained. COMPARISON: None. FINDINGS: There is no acute fracture/dislocation. Severe degenerative narrowing involving all compar tments of the right knee. Extensive spur formation noted and instability suggested. The overlying sof t tissue appears unremarkable. IMPRESSION: There is no acute fracture or dislocation.ICD 10 NO FRACTURE, INITIAL EVALUATION
[2018-07-20 10:10] LABS: Glucose,Whole Blood 129 mg/dL (75-99)
[2018-07-20 10:34] LABS: ABG Base Excess 7.7 mmol/L; ABG HCO3 31 mmol/L (21-25); ABG PCO2 43 mmHg (35-45); ABG PH 7.47 (7.35-7.45); ABG PO2 209 mmHg (83-108); ABG TCO2 33 mmol/L (19-24)
--- NOTE | 2018-07-20 11:05 | XR ---
EXAMINATION TYPE: XR chest 1V portable DATE OF EXAM: 07/20/2018 Comparison: 05/03/2018 Clinical History: 82-year-old male ET tube placement Findings: ET tube is satisfactory. NG tube rests approximately positioned. A can be advanced by 7 cm so that th e NG tube sidehole enters the stomach. Median sternotomy wires are present. Multiple overlying lines and catheters. Heart mildly enlarged with diffuse interstitial prominence. Moderate left and small right pleural eff usions with adjacent bibasilar opacity slightly increased in the interval. Impression: 1. Satisfactory ET tube. 2. NG tube can be advanced approximately 7 cm so that the side hole enters the stomach. 3. CHF with pulmonary vascular congestion. Increasing moderate left and small right pleural effusions with prominent bibasilar atelectasis and/or consolidation.
--- NOTE | 2018-07-20 11:18 | P.CNPUL ---
History of Present Illness Consult date: 07/20/18 Requesting physician: Lonnie Ortiz Reason for consult: other (Critical care/ventilator management) Chief complaint: Cardiac arrest History of present illness: This is a very pleasant 82-year-old gentleman who follows with Dr. Montanez as his primary care physician. He has a history of chronic atrial fibrillation, cardiac amyloidosis, restrictive cardiomyopathy, coronary artery disease with previous coronary artery bypass grafting 27 years ago, peptic ulcer disease, history of gastrointestinal bleeding, gastroesophageal reflux disease with esophageal stricture requiring dilatation, spinal stenosis with lumbar surgery 2, recent right hip replacement, benign prosthetic hypertrophy. He was brought into the hospital yesterday after being seen and evaluated by Dr. Johnson. The plan was for BiV pacemaker placement today he was able to lay flat. He was initiated on a Lasix drip at 10 mg per hour. Infection, approximately 9:30 this morning the patient developed a cardiac arrest while on the selective care unit. CPR was initiated for approximately 5 minutes. The patient was intubated placed on mechanical ventilator and transferred here to the intensive care unit where we are seeing the patient in consultation. Current vent settings are assist-control mode at a rate of 14, tidal volume 450, FiO2 100% and a PEEP of 5. Her Blood gases reveal a P O2 of 209, pCO2 43, pH 7.4 700%. We'll titrate down the FiO2. The patient is sedated on propofol at 30 mcg/kg/m. Lasix drip continues at 10 mg per hour. His chest x-ray reveals evidence of fluid volume overload with a left greater than right pleural effusions. Current heart blood pressure 100/68, heart rate 83, atrial fibrillation. Morning labs reveal an INR of 2.0. Potassium 4.0. Creatinine 2.02. TSH 6.78. Review of Systems ROS unobtainable: due to endotracheal tube Past Medical History Past Medical History: Atrial Fibrillation, Heart Failure, COPD, Hyperlipidemia, Myocardial Infarction (CA), Skin Disorder, Sleep Apnea/CPAP/BIPAP Additional Past Medical History / Comment(s): Dr Ortiz's H&P,recent increase SOB. HX SKIN PRE-CA LESIONS. hx HIATAL HERNIA. HX KIDNEY STONE.. see Dr Cho H&P, spouse hx GI bleed 10 years ago, dry itchy skin Last Myocardial Infarction Date:: UNKNOWN History of Any Multi-Drug Resistant Organisms: None Reported Past Surgical History: Ablation, Back Surgery, Cardiac Ablation, Coronary Bypass /CABG, Heart Catheterization With Stent, Hernia Repair, Joint Replacement, Orthopedic Surgery Additional Past Surgical History / Comment(s): BELLA CATARACTS; carpal tunnel BELLA, TRIPLE CABG age 56; LT ING HERNIA REPAIR; CARDIOVERSION; CARDIAC ABLATION X4, ATTEMPT X1 - LAST DONE 06/27/13 AT [facility] [place] FOR SPINAL STENOSIS, left hip replacement, 2 cardiac stents Past Anesthesia/Blood Transfusion Reactions: No Reported Reaction Date of Last Stent Placement:: unknown Past Psychological History: No Psychological Hx Reported Smoking Status: Never smoker Past Alcohol Use History: None Reported Past Drug Use History: None Reported - Past Family History Mother Family Medical History: Cancer Additional Family Medical History / Comment(s): breast Medications and Allergies Home Medications Medication Instructions Recorded Confirmed Type Atorvastatin [Lipitor] 40 mg PO HS 08/25/13 07/19/18 History Folic Acid 0.4 mg PO BID 08/25/13 07/19/18 History Lansoprazole 30 mg PO DAILY 08/25/13 07/19/18 History Warfarin [Coumadin] 2.5 mg PO HS 08/25/13 07/19/18 History Bumetanide [BUMEX] 2 mg PO DAILY 04/29/18 07/19/18 History Metoprolol Succinate 200 mg PO DAILY 04/29/18 07/19/18 History Nitroglycerin Sl Tabs [Nitrostat] 0.4 mg SUBLINGUAL Q5M PRN 04/29/18 07/19/18 History Bumetanide [Bumex] 1 mg PO DAILY@1500 07/19/18 07/19/18 History Allergies Allergy/AdvReac Type Severity Reaction Status Date / Time No Known Allergies Allergy Verified 07/19/18 11:16 Physical Exam Vitals: Vital Signs Temp Pulse Pulse Resp BP Pulse Ox 07/20/18 10:17 96.5 F L 83 14 100/68 07/20/18 09:40 74 18 93/55 98 07/20/18 08:30 97.1 F L 82 18 109/57 96 07/20/18 04:00 97.9 F 81 18 102/58 97 07/20/18 03:36 18 07/20/18 00:00 97.9 F 77 16 102/61 96 07/19/18 20:00 97.7 F 72 18 104/65 98 07/19/18 16:00 97.6 F 67 20 102/69 96 07/19/18 12:00 97.5 F L 70 20 102/56 99 Intake and Output 07/19/18 07/20/18 07/20/18 22:59 06:59 14:59 Intake Total 471.167 200 Output Total 175 1100 700 Balance 296.167 -900 -700 Intake: IV 30 20 Invasive Line 1 10 Invasive Line 2 20 20 Intake, IV Titration 81.167 100 Amount Furosemide 100 mg In 81.167 100 Sodium Chloride 0.9% 90 ml @ 10 MG/HR 10 mls/hr IV .Q10H [facility] Rx#: [id number] Oral 360 80 Output: Urine 175 1100 700 Other: # Voids 125 2 2 Weight 94.8 kg GENERAL EXAM: Sedated, intubated on the mechanical ventilator. HEAD: Normocephalic. EYES: Sluggish reaction of pupils, equal size. NOSE: Clear with pink turbinates. THROAT: Oral endotracheal and gastric tube secured in place. No erythema or exudates. NECK: No masses, no JVD. CHEST: No chest wall deformity. LUNGS: Equal air entry with a cousin the bilateral bases left greater than right. CVS: S1 and S2 normal with no audible murmur, regular rhythm. ABDOMEN: No hepatosplenomegaly, normal bowel sounds, no guarding or rigidity. SPINE: No scoliosis or deformity SKIN: No rashes CENTRAL NERVOUS SYSTEM: No focal deficits, tone is normal in all 4 extremities. EXTREMITIES: There is no peripheral edema. No clubbing, no cyanosis. Peripheral pulses are intact. Results - Laboratory Findings CBC and BMP: 07/19/18 10:05 07/20/18 05:56 ABG ABG pH 7.47 (7.35-7.45) H 07/20/18 10:32 ABG pCO2 43 mmHg (35-45) 07/20/18 10:32 ABG pO2 209 mmHg (83-108) H 07/20/18 10:32 ABG O2 Saturation 99.0 % (94-97) H 07/20/18 10:32 PT/INR, D-dimer PT 19.7 sec (9.0-12.0) H 07/20/18 05:56 INR 2.0 (<1.2) H 07/20/18 05:56 Abnormal lab findings: Abnormal Labs 07/19/18 07/19/18 07/19/18 10:05 10:05 10:05 RBC 3.77 L Hgb 11.2 L Hct 36.0 L RDW 16.5 H Lymphocytes # 0.9 L PT 20.6 H INR 2.1 H ABG pH ABG pO2 ABG HCO3 ABG Total CO2 ABG O2 Saturation Chloride 97 L Carbon Dioxide 35 H BUN 41 H Creatinine 2.09 H POC Glucose (mg/dL) ALT 12 L TSH 8.060 H 07/20/18 07/20/18 07/20/18 05:56 05:56 10:08 RBC Hgb Hct RDW Lymphocytes # PT 19.7 H INR 2.0 H ABG pH ABG pO2 ABG HCO3 ABG Total CO2 ABG O2 Saturation Chloride 94 L Carbon Dioxide 36 H BUN 42 H Creatinine 2.02 H POC Glucose (mg/dL) 129 H ALT TSH 6.780 H 07/20/18 10:32 RBC Hgb Hct RDW Lymphocytes # PT INR ABG pH 7.47 H ABG pO2 209 H ABG HCO3 31 H ABG Total CO2 33 H ABG O2 Saturation 99.0 H Chloride Carbon Dioxide BUN Creatinine POC Glucose (mg/dL) ALT TSH - Diagnostic Findings Chest x-ray: image reviewed Assessment and Plan Assessment: Impression: #1 Acute cardiac arrest requiring cardiopulmonary resuscitation with spontaneous return of circulation. Currently intubated on mechanical ventilator. #2 Acute exacerbation of diastolic congestive heart failure with restrictive cardiomyopathy. 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 #4 Atrial fibrillation currently with a controlled ventricular response. 2 quite a bit with warfarin. Current INR 2.0. #5 History of coronary artery disease with previous coronary artery bypass grafting. #6 Acute on chronic renal failure. #7 History of peptic ulcer disease with previous GI bleeding. #8 Gastroesophageal reflux disease with esophageal stricture requiring dilatation periodically. #9 Spinal stenosis with previous lumbar surgery 2. #10 Recent right hip surgery. #11 History of benign prosthetic hypertrophy. Plan: The patient was seen and evaluated by Dr. Freeman. Chest x-ray, ABGs and labs were all reviewed. We will discontinue the Lasix drip. Give IV fluid resuscitation. Initiate norepinephrine to keep the mean arterial pressure greater than 65. Initiate bronchodilators. Initiate tube feeds. The patient's overall prognosis remains quite guarded and poor based on his history of restrictive cardiomyopathy and likelihood of recurrent cardiac arrest. Dr. Freeman did have a lengthy discussion with the and 2 sons and 1 daughter at the bedside. The patient will be made a DO NOT RESUSCITATE. We'll continue with mechanical ventilation for the next 24-48 hours to see how he does. Insert an arterial line. We will continue with full supportive care for now. We will continue to follow and make further recommendations based on his clinical status. I, the cosigning physician, performed a history & physical examination of the patient. Lungs sounds with crackles in the bilateral posterior bases left greater than right. Maintaining good O2 saturations in the 90s on 100% FiO2. We'll continue to titrate down the FiO2 per ABG results. I discussed the assessment and plan of care with my nurse practitioner, Yoly Montiel. I attest to the above consultation as dictated by her. Time with Patient: Greater than 30
[2018-07-20] MEDS ORDERED: SODIUM CHLORIDE 0.9% 500 ML 500 ML IV ONE (11:19)
[2018-07-20] MEDS: NOREPINEPHRINE 4 MG in SODIUM CHLORIDE 0.9% 250 ML IV SCH (11:28)
[2018-07-20] MEDS: PROPOFOL 1,000 MG in EMPTY BAG 1 BAG IV SCH ×3 (11:30→17:31)
[2018-07-20] MEDS ORDERED: SODIUM CHLORIDE 0.9% 250 ML IV SCH (11:30)
[2018-07-20] MEDS: SODIUM CHLORIDE 0.9% 1,000 ML IV SCH (11:41)
[2018-07-20] MEDS ORDERED: SODIUM CHLORIDE 0.9% 750 ML IV ONE (11:47)
[2018-07-20] MEDS: FOLIC ACID 1 MG TAB PO SCH (12:38)
[2018-07-20] MEDS: IPRATROPIUM-ALBUTEROL 3 ML NEB INHALATION SCH ×4 (13:06→23:20)
[2018-07-20 13:55] LABS: ABG Base Excess 7.9 mmol/L; ABG HCO3 31 mmol/L (21-25); ABG Oxygen Saturation 99.2 % (94-97); ABG PCO2 42 mmHg (35-45); ABG PH 7.48 (7.35-7.45); ABG PO2 148 mmHg (83-108); ABG TCO2 33 mmol/L (19-24)
[2018-07-20 14:13] VITALS: BMI 28.3
[2018-07-20] MEDS ORDERED: AMIODARONE 300 MG in DEXTROSE 5% IN WATER 250 ML IV SCH ×2 (14:30)
--- NOTE | 2018-07-20 14:36 | P.PN ---
Subjective Progress Note Date: 07/20/18 This pleasant 82-year-old gentleman who follows regularly with Dr. Ortiz in the office. He has known history of chronic persistent atrial fibrillation, cardiac amyloidosis, restrictive cardiomyopathy, coronary artery disease with prior bypass surgery, peptic ulcer disease with prior GI bleed, esophageal stricture requiring dilated dictation, spinal stenosis, hyperlipidemia, sleep apnea, COPD, who was admitted to the hospital yesterday by Dr. Ortiz. Plan was for the patient to receive a bi-V pacemaker today. He had been initiated on IV Lasix drip at 10 mg per hour, and today orders were received to start the patient on IV amiodarone. Prior to being initiated, the bolus had just been started and patient was found to be unresponsive, on the monitor. He had a PDA. Patient had no pulse, CPR was initiated. Shortly thereafter patient regained a pulse, he was intubated and transferred to the intensive care unit. CPR lasted approximately 5 minutes in duration. He continues to be on a Lasix drip at 10 mg per hour. Chest x-ray was performed which revealed evidence of fluid volume overload with left greater than right pleural effusions. Let pressure 100/68, heart rate in the 80s, atrial fibrillation. Pro time today 19.7 with an INR of 2.0. Sodium 139, potassium 4.0, BUN 42 and creatinine 2.02. TSH 6.7. Objective - Vital Signs Vital signs: Vital Signs Temp 97 F L 07/20/18 12:00 Pulse 67 07/20/18 14:00 Resp 19 07/20/18 14:00 BP 91/62 07/20/18 14:00 Pulse Ox 100 07/20/18 14:00 Intake & Output 07/19/18 07/20/18 07/20/18 18:59 06:59 18:59 Intake Total 750 232.641 0888.348 Output Total 175 1100 995 Balance 575 -808.833 120.348 Weight 92.986 kg 94.8 kg 94.8 kg Intake: IV 30 30 Invasive Line 1 20 Invasive Line 2 10 30 Intake, IV Titration 311.704 5532.348 Amount Furosemide 100 mg In 181.167 Sodium Chloride 0.9% 90 ml @ 10 MG/HR 10 mls/hr IV .Q10H [facility] Rx#: [id number] Lactated Ringers 1,000 ml 10 @ 20 mls/hr IV .Q24H [facility] Rx#:[id number] Norepinephrine 4 mg In 76.391 Sodium Chloride 0.9% 250 ml @ 0.05 MCG/KG/MIN 18. 059 mls/hr IV .Q14H4M [facility] Rx#:[id number] Propofol 1,000 mg In 53.957 Empty Bag 1 bag @ Titrate IV .Q0M [facility] Rx#: [id number] Sodium Chloride 0.9% 1, 225 000 ml @ 75 mls/hr IV . [id number] [facility] Rx#:[id number] Sodium Chloride 0.9% 750 750 ml @ 750 mls/hr IV .Q1H [facility] Rx#:[id number] Oral 720 80 Output: Urine 175 1100 995 Other: # Voids 125 2 2 ABP, PAP, CO, CI - Last Documented Arterial Blood Pressure 92/44 - Exam GENERAL EXAM: Sedated, intubated on the mechanical ventilator. HEAD: Normocephalic. EYES: Sluggish reaction of pupils, equal size. NOSE: Clear with pink turbinates. THROAT: Oral endotracheal and gastric tube secured in place. No erythema or exudates. NECK: No masses, no JVD. CHEST: No chest wall deformity. LUNGS: Equal air entry with a cousin the bilateral bases left greater than right. CVS: S1 and S2 normal with no audible murmur, regular rhythm. ABDOMEN: No hepatosplenomegaly, normal bowel sounds, no guarding or rigidity. SPINE: No scoliosis or deformity SKIN: No rashes CENTRAL NERVOUS SYSTEM: No focal deficits, tone is normal in all 4 extremities. EXTREMITIES: There is no peripheral edema. No clubbing, no cyanosis. Peripheral pulses are intact. - Labs CBC & Chem 7: 07/19/18 10:05 07/20/18 05:56 Labs: Abnormal Lab Results - Last 24 Hours (Table) 07/20/18 07/20/18 07/20/18 Range/Units 05:56 05:56 10:08 PT 19.7 H (9.0-12.0) sec INR 2.0 H (<1.2) ABG pH (7.35-7.45) ABG pO2 (83-108) mmHg ABG HCO3 (21-25) mmol/L ABG Total CO2 (19-24) mmol/L ABG O2 Saturation (94-97) % Chloride 94 L (98-107) mmol/L Carbon Dioxide 36 H (22-30) mmol/L BUN 42 H (9-20) mg/dL Creatinine 2.02 H (0.66-1.25) mg/dL POC Glucose (mg/dL) 129 H (75-99) mg/dL TSH 6.780 H (0.465-4.680) mIU/L 07/20/18 07/20/18 Range/Units 10:32 13:50 PT (9.0-12.0) sec INR (<1.2) ABG pH 7.47 H 7.48 H (7.35-7.45) ABG pO2 209 H 148 H (83-108) mmHg ABG HCO3 31 H 31 H (21-25) mmol/L ABG Total CO2 33 H 33 H (19-24) mmol/L ABG O2 Saturation 99.0 H 99.2 H (94-97) % Chloride (98-107) mmol/L Carbon Dioxide (22-30) mmol/L BUN (9-20) mg/dL Creatinine (0.66-1.25) mg/dL POC Glucose (mg/dL) (75-99) mg/dL TSH (0.465-4.680) mIU/L Assessment and Plan Plan: Assessment and plan Impression: #1 Acute cardiac arrest requiring cardiopulmonary resuscitation with spontaneous return of circulation. Currently intubated on mechanical ventilator. #2 Acute exacerbation of diastolic congestive heart failure with restrictive cardiomyopathy. 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 #4 Atrial fibrillation currently with a controlled ventricular response. Anticoagulated with warfarin. Current INR 2.0. #5 History of coronary artery disease with previous coronary artery bypass grafting. #6 Acute on chronic renal failure. #7 History of peptic ulcer disease with previous GI bleeding. #8 Gastroesophageal reflux disease with esophageal stricture requiring dilatation periodically. #9 Spinal stenosis with previous lumbar surgery 2. #10 Recent right hip surgery. #11 History of benign prosthetic hypertrophy. Plan From cardiology's perspective, we will continue current dose of IV Lasix drip. Along with the norepinephrine to keep the mean arterial pressure greater than 65. Overall prognosis remains quite guarded. DNP note has been reviewed, I agree with a documented findings and plan of care. Patient was seen and examined.
--- NOTE | 2018-07-20 18:12 | PCN ---
PROCEDURE NOTE ARTERIAL LINE PLACEMENT: Indications: Hemodynamic monitoring. A time-out was completed verifying correct patient, procedure, site, positioning, and implant(s) or special equipment if applicable. Humble's test was performed to ensure adequate perfusion. The patient's right wrist was prepped and draped in sterile fashion. 1% Lidocaine was used to anesthetize the area. An 18G Arrow arterial line was introduced into the radial artery. The catheter was threaded over the guide wire and the needle was removed with appropriate pulsatile blood return. Blood loss was minimal. The catheter was then sutured in place to the skin and a sterile dressing applied. Perfusion to the extremity distal to the point of catheter insertion was checked and found to be adequate. The patient tolerated the procedure well and there were no complications. The patient tolerated the procedure well, right radial arterial line was placed without immediate complications, good waveform and blood return was noted, line was sutured in place, sterile dressing was applied. MMODL / IJN: [id number] /
[2018-07-20] MEDS: ATORVASTATIN 40 MG TAB PO SCH (20:27)
[2018-07-21] MEDS: SODIUM CHLORIDE 0.9% 1,000 ML IV SCH ×2 (01:09→15:14)
[2018-07-21] MEDS: PROPOFOL 1,000 MG in EMPTY BAG 1 BAG IV SCH ×4 (02:05→19:03)
[2018-07-21] MEDS: NOREPINEPHRINE 4 MG in SODIUM CHLORIDE 0.9% 250 ML IV SCH ×5 (02:10→20:58)
[2018-07-21] MEDS: CHLORHEXIDINE GLUCONATE 15 ML CUP MUCOUS MEM SCH ×3 (03:09→20:14)
[2018-07-21] MEDS: IPRATROPIUM-ALBUTEROL 3 ML NEB INHALATION SCH ×6 (03:19→23:13)
[2018-07-21 04:32] LABS: Glucose,Whole Blood 118 mg/dL (75-99)
[2018-07-21 04:36] LABS: Anisocytosis Slight; Basophils % (A) 1 %; Eosinophils # (A) 0.3 k/uL (0-0.7); Eosinophils % (A) 4 %; HCT 36.3 % (39.0-53.0); HGB 11.5 gm/dL (13.0-17.5); Hypochromasia Slight; Lymphocytes # (A) 0.8 k/uL (1.0-4.8); Lymphocytes % (A) 10 %; MCH 29.3 pg (25.0-35.0); MCHC 31.6 g/dL (31.0-37.0); MCV 92.7 fL (80.0-100.0); Mean Platelet Volume 8.2; Monocytes # (A) 0.4 k/uL (0-1.0); Monocytes % (A) 6 %; Neutrophils % (A) 77 %; Platelet Count 298 k/uL (150-450); RBC 3.91 m/uL (4.30-5.90); RDW 16.6 % (11.5-15.5); WBC 7.8 k/uL (3.8-10.6)
[2018-07-21 04:46] LABS: Albumin 3.2 g/dL (3.5-5.0); Magnesium 1.9 mg/dL (1.6-2.3); Phosphorus 3.5 mg/dL (2.5-4.5); Potassium 3.9 mmol/L (3.5-5.1); Total Bilirubin 1.1 mg/dL (0.2-1.3); Total Protein 5.7 g/dL (6.3-8.2)
[2018-07-21 05:46] LABS: ABG Base Excess 5.9 mmol/L; ABG HCO3 30 mmol/L (21-25); ABG PCO2 44 mmHg (35-45); ABG PH 7.45 (7.35-7.45); ABG PO2 109 mmHg (83-108); ABG TCO2 31 mmol/L (19-24)
[2018-07-21] MEDS: LEVOTHYROXINE 25 MCG TAB PO SCH (06:54)
--- NOTE | 2018-07-21 07:36 | P.PN ---
Subjective Patient is still intubated. His vitals are stable. He's on a small dose of Levophed. He is in A. fib with heart rates are controlled Yesterday he had an episode of PEA Following which CPR was initiated ACLS protocol, brief for less than 5-10 min utes with quick recovery intubation and stabilization He is now DO NOT RESUSCITATE did at a very detailed discussion with the family members and the and they're in agreement I spoke to Dr. Lerma and he will try to extubate him today Thereafter his cardiac medications will continue He is on palliative care already Blood pressure 104/50 minute was mercury pulse rate in the 80s respirations 22 Breath sounds are reduced Heart sounds are irregular but normal no murmurs no gallops. Abdomen soft nontender Bilateral lower extremity edema JVD Impression Cardiac amyloidosis with heart failure, end-stage Pulseless electrical activity Permanent atrial fibrillation Diastolic heart failure, restrictive cardio myopathy Suggest An attempt at extubation today ENR status has been established Medical treatment to continue along with anticoagulation as before palliative care at home Objective - Vital Signs Vital signs: Vital Signs Temp 98.5 F 07/21/18 04:00 Pulse 80 07/21/18 07:21 Resp 19 07/21/18 06:00 BP 87/57 07/20/18 19:00 Pulse Ox 97 07/21/18 06:00 Intake & Output 07/20/18 07/21/18 07/21/18 18:59 06:59 18:59 Intake Total 9603.051 7166.908 Output Total 1170 395 Balance 363.470 1648.908 Weight 94.8 kg Intake: IV 825 Sodium Chloride 0.9% 1, 825 000 ml @ 75 mls/hr IV . [id number] [facility] Rx#:[id number] Intake, IV Titration 1640.673 470.908 Amount Lactated Ringers 1,000 ml 10 @ 20 mls/hr IV .Q24H [facility] Rx#:[id number] Norepinephrine 4 mg In 126.716 289.759 Sodium Chloride 0.9% 250 ml @ 0.05 MCG/KG/MIN 18. 059 mls/hr IV .Q14H4M [facility] Rx#:[id number] Propofol 1,000 mg In 153.957 181.149 Empty Bag 1 bag @ Titrate IV .Q0M [facility] Rx#: [id number] Sodium Chloride 0.9% 1, 600 000 ml @ 75 mls/hr IV . [id number] [facility] Rx#:[id number] Sodium Chloride 0.9% 750 750 ml @ 750 mls/hr IV .Q1H [facility] Rx#:[id number] Tube Feeding 50 180 Other 90 Output: Urine 1170 395 Other: Voiding Method Indwelling Catheter Indwelling Catheter # Voids 2 ABP, PAP, CO, CI - Last Documented Arterial Blood Pressure 104/50 - Labs CBC & Chem 7: 07/21/18 04:22 07/21/18 04:22 Labs: Abnormal Lab Results - Last 24 Hours (Table) 07/20/18 07/20/18 07/20/18 Range/Units 10:08 10:32 13:50 RBC (4.30-5.90) m/uL Hgb (13.0-17.5) gm/dL Hct (39.0-53.0) % RDW (11.5-15.5) % Lymphocytes # (1.0-4.8) k/uL ABG pH 7.47 H 7.48 H (7.35-7.45) ABG pO2 209 H 148 H (83-108) mmHg ABG HCO3 31 H 31 H (21-25) mmol/L ABG Total CO2 33 H 33 H (19-24) mmol/L ABG O2 Saturation 99.0 H 99.2 H (94-97) % BUN (9-20) mg/dL Creatinine (0.66-1.25) mg/dL Glucose (74-99) mg/dL POC Glucose (mg/dL) 129 H (75-99) mg/dL ALT (21-72) U/L Total Protein (6.3-8.2) g/dL Albumin (3.5-5.0) g/dL 07/21/18 07/21/18 07/21/18 Range/Units 03:17 04:17 04:22 RBC (4.30-5.90) m/uL Hgb (13.0-17.5) gm/dL Hct (39.0-53.0) % RDW (11.5-15.5) % Lymphocytes # (1.0-4.8) k/uL ABG pH (7.35-7.45) ABG pO2 109 H (83-108) mmHg ABG HCO3 30 H (21-25) mmol/L ABG Total CO2 31 H (19-24) mmol/L ABG O2 Saturation 98.0 H (94-97) % BUN 41 H (9-20) mg/dL Creatinine 2.06 H (0.66-1.25) mg/dL Glucose 116 H (74-99) mg/dL POC Glucose (mg/dL) 118 H (75-99) mg/dL ALT 18 L (21-72) U/L Total Protein 5.7 L (6.3-8.2) g/dL Albumin 3.2 L (3.5-5.0) g/dL 07/21/18 Range/Units 04:22 RBC 3.91 L (4.30-5.90) m/uL Hgb 11.5 L (13.0-17.5) gm/dL Hct 36.3 L (39.0-53.0) % RDW 16.6 H (11.5-15.5) % Lymphocytes # 0.8 L (1.0-4.8) k/uL ABG pH (7.35-7.45) ABG pO2 (83-108) mmHg ABG HCO3 (21-25) mmol/L ABG Total CO2 (19-24) mmol/L ABG O2 Saturation (94-97) % BUN (9-20) mg/dL Creatinine (0.66-1.25) mg/dL Glucose (74-99) mg/dL POC Glucose (mg/dL) (75-99) mg/dL ALT (21-72) U/L Total Protein (6.3-8.2) g/dL Albumin (3.5-5.0) g/dL
--- NOTE | 2018-07-21 08:20 | XR ---
EXAMINATION TYPE: XR chest 1V portable DATE OF EXAM: 07/21/2018 COMPARISON: 07/20/2018 HISTORY: Congestive heart failure and endotracheal tube placement. TECHNIQUE: Single frontal view of the chest is obtained. FINDINGS: Similar layering pleural effusions are seen, left greater than right. No current pulmonary vascular congestion. Cardia mediastinal silhouette is enlarged but partially obscured. Endotracheal tube is stable. Sidehole of the enteric tube is just above the expected location of the gastroesophag eal junction with the hemidiaphragms obscured by pleural effusions. Advancement approximately 5 cm to ensure the side hole/fenestrated portion is beyond the gastroesophageal junction. There is diffuse o sseous demineralization. IMPRESSION: Similar pleural effusions, left greater than right that are overall small with associate d compressive atelectasis. Enteric tube could be advanced approximately 5 cm for optimal placement.
[2018-07-21] MEDS: METOPROLOL SUCCINATE (ER) 100 MG TAB.ER.24H PO SCH (08:29)
[2018-07-21] MEDS: PANTOPRAZOLE 40 MG/10 ML VIAL IVP SCH (09:15)
[2018-07-21] MEDS: LEVOTHYROXINE IVP 100 MCG/5 ML VIAL IV SCH (09:16)
--- NOTE | 2018-07-21 10:35 | PN ---
PROGRESS NOTE DATE OF SERVICE: July 21, 2018 This is an 82-year-old gentleman who was actually seen by my nurse practitioner and myself yesterday. The patient had an acute cardiopulmonary arrest and was resuscitated. There was return of spontaneous circulation after a brief period of cardiac arrest. The patient apparently was found to be pulseless electrical activity. The patient was intubated quickly. He had some chest compressions. It did not received any medications. He currently remains on the ventilator. The patient's overall prognosis is very poor. 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 Anyway, the patient remains on the volume assist-control mode rate of 16, tidal volume 450, FiO2 35% to be dropped to 30% and PEEP of 5. Blood gases today show a pO2 of 109, pCO2 of 44, pH 7.45. Blood gases were consistent with mild hyperoxia and mild metabolic alkalosis. In addition, the patient remains on norepinephrine at 70 mcg/minute, propofol at 50 mcg/kg per minute, 0.9 at 75 mL an hour and Vital high-protein at 30 with a goal of 39 mL an hour. I was hoping to do a daily interruption of sedation today with a possible spontaneous breathing trial, but because of his high Levophed requirements, I may not be able to do the SBT. Anyway, I did have a discussion with the family again today. The plan would be to go ahead and do a daily interruption of sedation but probably no weaning today given his high Levophed requirements. We did discover that the patient was hypothyroid. We added Synthroid 75 mcg IV per day. In addition, I have asked the nurse to check a random cortisol level. Chest x-ray shows evidence of heart failure with bilateral pleural effusions. In addition to all the above, he has a history of atrial fibrillation, CAD with previous bypass grafting, acute on chronic renal failure, peptic ulcer disease, gastroesophageal reflux disease with esophageal stricture, spinal stenosis, recent right hip surgery and also history of benign prostatic hypertrophy. Current vital signs reviewed. Temperature 96, heart rate 92, respiratory rate 16, blood pressure 98/56, mean 70, and saturations 95% on 30% FiO2. Appears in no acute distress. Currently sedated. HEENT examination is grossly unremarkable. There is an orally placed endotracheal tube and NG tube. NECK: Supple. Full range of motion. No adenopathy, thyromegaly or neck vein distention. CARDIOVASCULAR: Examination reveals distant heart sounds. S1, S2 normal. There is a systolic murmur noted. Heart rate 92. No clear-cut S3 or S4. LUNGS: Reveal coarse bilateral rhonchi. There is some bibasilar crackles. Breath sounds equal bilaterally but diminished throughout. No wheezes. ABDOMEN: Soft. Bowel sounds are heard. EXTREMITIES: Reveal significant pitting edema at least 2+. There is some chronic venous stasis changes in the lower extremities as well. No cyanosis or clubbing. SKIN: Without rash other than what was previously mentioned. NEUROLOGIC: Examination is difficult to assess given his sedation. Lab data is reviewed. White count 7.8, hemoglobin 11.5, hematocrit 36.3, and platelet count normal. Sodium, potassium, chloride, CO2 all normal. Anion gap is 9. BUN and creatinine were 41 and 2.06. His TSH was initially 8.060 and repeat was 6.780. Chest x-ray shows evidence of fluid overload, bilateral pleural effusions, compressive atelectasis as well as some cardiomegaly. Medications are reviewed. ASSESSMENT: 1. Acute cardiac arrest requiring cardiopulmonary resuscitation with return of spontaneous circulation. The patient did require intubation and mechanical ventilation and remains on mechanical ventilator. 2. 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 3. Atrial fibrillation with controlled ventricular response rate. 4. History of coronary artery disease with previous bypass grafting. 5. History of acute on chronic renal failure. 6. Peptic ulcer disease with gastrointestinal bleed. 7. Gastroesophageal reflux disease with esophageal stricture requiring balloon dilatation. 8. Spinal stenosis with previous lumbar surgery x2. 9. Recent right hip surgery. 10.History of benign prostatic hypertrophy. PLAN: The patient's overall prognosis remains very poor. Because of his hypothyroidism, we will add Synthroid 75 mcg IV every day. In addition, I asked the nurses for a stat random cortisol level to see if there is any evidence of adrenal insufficiency. If there were, we would add hydrocortisone 100 mg q.8 hours. The patient is being nourished. Will increase the tube feeds to goal. He remains on Diprivan at 50 mcg/kg per minute. We will do a daily interruption of sedation. I told the family that we would likely not do a spontaneous breathing trial giving his Levophed requirements. Additional recommendations and suggestions are forthcoming. Prognosis is very poor. CRITICAL CARE TIME: 38 minutes. CYRIL / SILVANAN: [id number] / MARTA
[2018-07-21] MEDS: MIDODRINE 5 MG TAB PO SCH ×2 (12:08→17:40)
[2018-07-21] MEDS: FOLIC ACID 1 MG TAB PO SCH (12:08)
[2018-07-21 12:34] LABS: INR 1.9 (<1.2)
[2018-07-21] MEDS: HYDROCORTISONE SUCCINATE 100 MG/2 ML VIAL IV SCH (15:13)
[2018-07-21] MEDS ORDERED: WARFARIN 2.5 MG TAB PO SCH (18:00)
[2018-07-21] MEDS: PANTOPRAZOLE 40 MG TABLET PO SCH (19:03)
[2018-07-21] MEDS: ATORVASTATIN 40 MG TAB PO SCH (20:13)
[2018-07-22] MEDS: HYDROCORTISONE SUCCINATE 100 MG/2 ML VIAL IV SCH ×2 (00:16→08:25)
[2018-07-22] MEDS: NOREPINEPHRINE 4 MG in SODIUM CHLORIDE 0.9% 250 ML IV SCH ×7 (00:16→14:40)
[2018-07-22] MEDS: IPRATROPIUM-ALBUTEROL 3 ML NEB INHALATION SCH ×3 (03:03→11:19)
[2018-07-22 05:15] LABS: ABG Base Excess 4.1 mmol/L; ABG HCO3 29 mmol/L (21-25); ABG Oxygen Saturation 94.5 % (94-97); ABG PCO2 45 mmHg (35-45); ABG PH 7.41 (7.35-7.45); ABG PO2 71 mmHg (83-108); ABG TCO2 30 mmol/L (19-24)
[2018-07-22 05:20] LABS: INR 1.8 (<1.2); Prothrombin Time 17.6 sec (9.0-12.0)
[2018-07-22 05:25] LABS: Albumin 3.1 g/dL (3.5-5.0); Calcium 8.8 mg/dL (8.4-10.2); Phosphorus 3.8 mg/dL (2.5-4.5); Total Bilirubin 0.8 mg/dL (0.2-1.3); Total Protein 5.7 g/dL (6.3-8.2)
[2018-07-22 05:30] LABS: Anisocytosis Slight; Basophils % (A) 0 %; Eosinophils % (A) 0 %; HCT 35.6 % (39.0-53.0); Hypochromasia Slight; Lymphocytes # (A) 0.3 k/uL (1.0-4.8); Lymphocytes % (A) 3 %; MCH 29.3 pg (25.0-35.0); MCV 94.3 fL (80.0-100.0); Mean Platelet Volume 6.8; Monocytes # (A) 0.4 k/uL (0-1.0); Monocytes % (A) 4 %; Neutrophils # (A) 9.5 k/uL (1.3-7.7); Neutrophils % (A) 91 %; Platelet Count 290 k/uL (150-450); RBC 3.78 m/uL (4.30-5.90); RDW 16.4 % (11.5-15.5); WBC 10.4 k/uL (3.8-10.6)
[2018-07-22 05:57] LABS: Appearance,Urine Clear (Clear); Bilirubin,Urine Negative (Negative); Blood,Urine Negative (Negative); Color,Urine Yellow; Glucose,Urine (UA) Negative (Negative); Hyaline Casts,Urine 12 /lpf (0-2); Ketones,Urine Negative (Negative); Leukocyte Esterase,Urine Small (Negative); Mucus,Urine Rare /hpf; Nitrite,Urine Negative (Negative); PH, Urine 5.5 (5.0-8.0); Protein,Urine Trace (Negative); RBC,Urine 2 /hpf (0-5); Specific Gravity,Urine 1.014 (1.001-1.035); Squamous Epithelial Cell,Urine <1 /hpf (0-4); Urobilinogen,Urine <2.0 mg/dL (<2.0)
[2018-07-22] MEDS: PROPOFOL 1,000 MG in EMPTY BAG 1 BAG IV SCH ×2 (06:19→12:20)
[2018-07-22] MEDS: INSULIN ASPART (NovoLOG) 100 UNIT/ML VIAL SQ SCH ×2 (06:35→12:32)
[2018-07-22 06:55] LABS: Glucose,Whole Blood 190 mg/dL (75-99)
[2018-07-22] MEDS: MIDODRINE 5 MG TAB PO SCH ×2 (08:25→12:42)
[2018-07-22] MEDS: PANTOPRAZOLE 40 MG/10 ML VIAL IVP SCH (08:25)
[2018-07-22] MEDS: LEVOTHYROXINE IVP 100 MCG/5 ML VIAL IV SCH (08:25)
[2018-07-22] MEDS: CHLORHEXIDINE GLUCONATE 15 ML CUP MUCOUS MEM SCH (08:25)
--- NOTE | 2018-07-22 08:25 | XR ---
EXAMINATION TYPE: XR chest 1V portable DATE OF EXAM: 07/22/2018 Comparison: 07/21/2018 Clinical History: 82-year-old male Intubation/CHF Findings: ET tube tip just above the level of the medial clavicular heads, pulled back slightly in the interval . NG tube courses below the diaphragm. Continued small to moderate bilateral pleural effusions, left greater than right, with adjacent bibas ilar opacities. This may be slightly increased on the right given slightly greater degree of obscurat ion of the right heart border. Heart seems to be mildly enlarged. Impression: 1. Moderate pleural effusions, left greater than right are slightly increased. Adjacent atelectasis a nd/or consolidation. Possible CHF as the etiology. 2. Note that the ET tube tip is just above the level of the medial clavicular heads, pulled back slig htly in the interval.
[2018-07-22 08:56] VITALS: TEMP 99
--- NOTE | 2018-07-22 09:42 | PN ---
PROGRESS NOTE DATE OF SERVICE: 07/22/2018 This is an 82-year-old gentleman who was actually seen initially by my nurse practitioner and myself a couple days ago. The patient had an acute cardiopulmonary arrest and was resuscitated. After brief resuscitation he had return of spontaneous circulation. He mostly required intubation with mechanical ventilation and chest compressions without medications. He apparently was found to be in pulseless electrical activity (PEA). The patient has not been doing well here in the unit. He remains on the ventilator. Currently, he is on the volume assist-control mode rate of 16, tidal volume 450, FiO2 of 30%, PEEP of 5. Blood gases show a pO2 of 71, pCO2 of 45, pH of 7.41. He remains on Diprivan at 50 mcg/kg per minute, norepinephrine at 17 mcg/minute, 0.9 at 43 mL an hour and Vital high-protein at 39 with a goal of 39 mL an hour. His cortisol level was 16 so we started him on hydrocortisone 100 mg q.8. His blood pressures yesterday were only in the mid 70s. Since starting hydrocortisone, his blood pressures are up in the 120 range. This may suggest some relative adrenal insufficiency. Today, we are going to go ahead and do a daily interruption of sedation and attempt a spontaneous breathing trial with PSV 8, EPAP of 5. Anyway, the patient is doing about the same. I have kept the family informed. Chest x-ray shows a pattern of CHF. In addition, he has a history of atrial fibrillation, CAD, previous bypass grafting, acute on chronic renal failure, peptic ulcer disease, GERD, esophageal stricture, spinal stenosis, recent right hip surgery and also BPH. Current vital signs include A temperature of 99, heart rate 101, respiratory rate 28, blood pressure 114/69 mean 84, saturations are 94% on 30% and 5 of PEEP. Appears in no acute distress. HEENT: Examination is grossly unremarkable. There is no orally placed endotracheal tube and NG tube. NECK: Supple. Full range of motion. No adenopathy. Neck veins are distended. CARDIOVASCULAR: Examination reveals mild tachycardia. S1, S2 normal. Heart sounds are distant. There is a soft systolic murmur. LUNGS: Reveal bibasilar crackles. Breath sounds equal but diminished throughout. A few scattered rhonchi are noted. ABDOMEN: Soft. Bowel sounds are heard. EXTREMITIES: Reveal significant pitting edema, at least P2+. There is some chronic venous stasis changes and hyperpigmentation to lower extremities as well. No cyanosis or clubbing. SKIN: Without rash. NEUROLOGIC: Examination could not be adequately evaluated because of his level of sedation. Chest x-ray that was done on 07/22/2018, shows evidence of pleural effusions, left greater than right. There is cardiomegaly. There is some changes of CHF. LABORATORY DATA: Shows a white count 10.4, hemoglobin 11, hematocrit 35.6, platelet count 290, 000. PT 17.6, INR 1.8. Sodium, potassium, chloride, CO2 all normal. Anion gap 10. BUN and creatinine were 42 and 1.82. Rest of the labs look okay. Microbiologic studies are negative or pending. Medications have been reviewed. ASSESSMENT: 1. Acute cardiac arrest requiring cardiopulmonary resuscitation with return of spontaneous circulation. The patient did require intubation and mechanical ventilation. Remains on the mechanical ventilator. 2. 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 3. Atrial fibrillation with controlled ventricular response rate. 4. History of coronary artery disease with previous bypass grafting. 5. History of acute on chronic renal failure. 6. Peptic ulcer disease with gastrointestinal bleed. 7. Gastroesophageal reflux disease with esophageal stricture requiring balloon dilatation. 8. Spinal stenosis with previous lumbar surgery x2. 9. Recent right hip surgery. 10.History of benign prostatic hypertrophy. PLAN: The patient's overall prognosis remains very poor and we are going to attempt a daily interruption of sedation. Will attempt PSV 8, CPAP of 5. The Diprivan will be weaned. He is still requiring relatively higher doses of norepinephrine at 17 mcg/minute. He is getting nourished with vital high-protein. His blood pressure did seem to improve with the hydrocortisone 100 mg q.8. Random cortisol level was only 16. Will continue to follow. I have kept the family apprised the entire time. I have been very honest with them. This includes primarily the son, who I know Lee. Additional recommendations and suggestions are forthcoming. Critical care time 39 minutes. MMRENANL / SILVANAN: [id number] /
[2018-07-22 12:09] LABS: ABG Base Excess 1.6 mmol/L; ABG HCO3 28 mmol/L (21-25); ABG Oxygen Saturation 80.5 % (94-97); ABG PCO2 53 mmHg (35-45); ABG PH 7.33 (7.35-7.45); ABG TCO2 29 mmol/L (19-24)
[2018-07-22 12:18] LABS: ABG PO2 50 mmHg (83-108)
[2018-07-22 12:33] LABS: Glucose,Whole Blood 109 mg/dL (75-99)
[2018-07-22] MEDS: FOLIC ACID 1 MG TAB PO SCH (12:42)
[2018-07-22] MEDS: SODIUM CHLORIDE 0.9% 1,000 ML IV SCH (12:43)
--- NOTE | 2018-07-22 15:30 | CDI ---
Documentation Clarification Form Date: 07/22/2018 3:13:17 PM From: Stfeany Carreon CCS, CCDS Admit Date: 07/19/2018 9:11:00 AM Patient Name: Jeff Crowley Visit Number: [id number] Discharge Date: ATTENTION: The Clinical Documentation Specialists (CDI) and [facility] Coding Staff appreciate your assistance in clarifying documentation. Please respond to the clarification below the line at the bottom and electronically sign. The CDI & [facility] Coding staff will review the response and follow-up if needed. Please note: Queries are made part of the Legal Health Record. If you have any questions, please contact the author of this message via ITS. Dr. Patricio Freeman: Patient was admitted on 07/19 for insertion of a Biventricular pacemaker after being diuresed for severe diastolic heart failure secondary to cardiac amyloidosis & restrictive cardiomyopathy. Prior to pacemaker procedure on 07/20 the patient went into cardiac arrest requiring cardiopulmonary resuscitation, now intubated and on ventilator since 07/20. History/Risk Factors: Cardiac history as above including IL w/previous stent & CABG, COPD, Diastolic CHF, Atrial fibrillation on Warfarin, Hyperlipidemia, CKD, PUD, Spinal stenosis, BPH & GERD. Clinical Indicators: VS on admission: T 97.5*, P 75, R 20 (sob, cough, shallow), BP 102/56, PO 99 2Lnc VS prior to intubation: T 97.1*, P 74, R 18, BP 93/55*, PO 98 2Lnc 07/20 ABG/CBG: pH 7.47^, pO2 209^, pCO2 (43), Total CO2 33^ Treatment: IV Lasix, IV fl rate 50. Intubated 07/20, IV Kefzol, IV Amiodarone, Albuterol INH, IV fluid bolus, IV Synthroid, IV SoluCortef In your professional opinion, can you please clarify if these findings signify one of the following conditions? Acute Respiratory Failure Chronic Respiratory Failure Acute on Chronic Respiratory Failure o With hypercapnia o With hypoxia Other Diagnosis, please specify Unable to determine (Last Revision: June 2017) Acute Cardiac arrest MTDD
[2018-07-22] MEDS ORDERED: MORPHINE SULFATE 2 MG/ML SYRINGE IVP ONE (15:38)
[2018-07-22] MEDS ORDERED: ATROPINE OPHTH SOLN 1% 5ML BTL SUBLINGUAL PRN (15:38)
[2018-07-22] MEDS ORDERED: MORPHINE SULFATE 2 MG/ML SYRINGE IV PRN (15:38)
[2018-07-22] MEDS ORDERED: MORPHINE SULFATE (100 MG/2 ML) 100 MG in SODIUM CHLORIDE 0.9% 100 ML IV SCH (15:45)
[2018-07-22 15:55] VITALS: BP 102/64; PULSE 165; RESP 24
--- NOTE | 2018-07-26 14:55 | CDI ---
Documentation Clarification Form Date: 07/26/2018 2:39:08 PM From: Ana Patricio RN, CCDS Email: [email or web address] Admit Date: 07/19/2018 9:11:00 AM Patient Name: Jeff Crowley Visit Number: [id number] Discharge Date: 07/22/2018 4:58:00 PM ATTENTION: The Clinical Documentation Specialists (CDI) and [facility] Coding Staff appreciate your assistance in clarifying documentation. Please respond to the clarification below the line at the bottom and electronically sign. The CDI & [facility] Coding staff will review the response and follow-up if needed. Please note: Queries are made part of the Legal Health Record. If you have any questions, please contact the author of this message via ITS. Dr. Lonnie Ortiz Patient was admitted with severe diastolic heart failure secondary to cardiac amyloidosis/restrictive cardiomyopathy and atrial fibrillation with RVR. Also found to be in acute renal failure with diagnosis of acute on chronic renal failure. History/Risk Factors: cardiac amyloidosis, atrial fibrillation, chronic renal failure, CAD Clinical Indicators: fluid overload, SOB at rest, orthopnea, distended abdomen, ascites, BLLE edema, went into cardiac arrest Current BUN:41/42/41/42 Current Cr: 2.09/2.02/2.06/1.82 Current GFR: 28/30/29/34 Treatment: 0.9 NS bolus x3. Maintenance IV fluids at 50/hr, lab monitoring In order to capture the severity of condition, please clarify if the condition signifies: CKD Stage 1 (GFR > 90) CKD Stage 2 (GFR 60-89) CKD Stage 3 (GFR 30-59) CKD Stage 4 (GFR 15-29) CKD Stage 5 (GFR <15) ESRD Other, please specify Unable to determine MTDD
== END 2018-07-22 16:58 | disposition expired | DRG 545 ==
LOC: 3SCARD 07-19 09:11 → 2SICU 07-20 09:55
PROVIDERS: ADMIT Internal Medicine Clinical Cardiac Electrophysiology; ATTEND Internal Medicine Clinical Cardiac Electrophysiology
PROC: 03HY32Z Insertion of Monitoring Device into Upper Artery, Percutaneous Approach (ICD-10-PCS; principal; 2018-07-20)
PROC: 4A133B1 Monitoring of Arterial Pressure, Peripheral, Percutaneous Approach (ICD-10-PCS; 2018-07-20)
PROC: 4A133J1 Monitoring of Arterial Pulse, Peripheral, Percutaneous Approach (ICD-10-PCS; 2018-07-20)
PROC: 3E0G76Z Introduction of Nutritional Substance into Upper GI, Via Natural or Artificial Opening (ICD-10-PCS; 2018-07-20)
PROC: 0BH17EZ Insertion of Endotracheal Airway into Trachea, Via Natural or Artificial Opening (ICD-10-PCS; 2018-07-20)
PROC: 5A1945Z Respiratory Ventilation, 24-96 Consecutive Hours (ICD-10-PCS; 2018-07-20)
PROC: 0DH67UZ Insertion of Feeding Device into Stomach, Via Natural or Artificial Opening (ICD-10-PCS; 2018-07-20)
PROC: 5A12012 Performance of Cardiac Output, Single, Manual (ICD-10-PCS; 2018-07-20)
DX: E85.4 Organ-limited amyloidosis (principal); I50.33 Acute on chronic diastolic (congestive) heart failure; K27.4 Chronic or unspecified peptic ulcer, site unspecified, with hemorrhage; N17.9 Acute kidney failure, unspecified; E87.3 Alkalosis; R18.8 Other ascites; I48.1 Persistent atrial fibrillation; I42.5 Other restrictive cardiomyopathy; E27.40 Unspecified adrenocortical insufficiency; I43 Cardiomyopathy in diseases classified elsewhere; J98.11 Atelectasis; I46.9 Cardiac arrest, cause unspecified; J44.9 Chronic obstructive pulmonary disease, unspecified; K22.2 Esophageal obstruction; I25.10 Atherosclerotic heart disease of native coronary artery without angina pectoris; G47.30 Sleep apnea, unspecified; E78.5 Hyperlipidemia, unspecified; S80.01XA Contusion of right knee, initial encounter; Z51.5 Encounter for palliative care; Z66 Do not resuscitate; K21.9 Gastro-esophageal reflux disease without esophagitis; N40.0 Benign prostatic hyperplasia without lower urinary tract symptoms; N18.9 Chronic kidney disease, unspecified; M48.00 Spinal stenosis, site unspecified; E03.9 Hypothyroidism, unspecified; I87.8 Other specified disorders of veins; K44.9 Diaphragmatic hernia without obstruction or gangrene; I25.2 Old myocardial infarction; W01.0XXA Fall on same level from slipping, tripping and stumbling without subsequent striking against object, initial encounter; Z79.01 Long term (current) use of anticoagulants; Z79.899 Other long term (current) drug therapy; Z85.828 Personal history of other malignant neoplasm of skin; Z87.442 Personal history of urinary calculi; Z95.1 Presence of aortocoronary bypass graft; Z95.5 Presence of coronary angioplasty implant and graft; Z96.643 Presence of artificial hip joint, bilateral; Z98.42 Cataract extraction status, left eye; Z98.41 Cataract extraction status, right eye; Z80.9 Family history of malignant neoplasm, unspecified
CPT/HCPCS: 36600; 71045; 80048; 80053; 81001; 82533; 82805; 83735; 84100; 84439; 84443; 85025; 85610; 87040; 87070; 87077; 87186; 87205; 94002; 94003; 94640